=== PATIENT | female | born 1940 | race Caucasian/White ===

== ENCOUNTER 2016-06-14 12:23 | Inpatient (IN) | payer OTHER, MEDICARE ==
--- NOTE | 2016-06-14 13:15 | PDOC ---
History of Present Illness <Carey Rodríguez - Last Filed: 06/14/16 15:28> - General History Source: Patient Exam Limitations: No Limitations - History of Present Illness Initial Comments: 06/14/16 13:19 76y F hx of chf s/p pm/defibrillator, htn, hl, presents sent to the ED for evaluation of worsening LE edema - pt with recent admission but left AMA, she went to the PMDs office today and pt has been off her meds, after discussion with cardiology, pt was sent to the ED for admission. pt states feeling alittle be weaker than usual, +leg swelling b/l, pt denies any cp, sob, fever/chills, cough, diarrhea/dysuria. per dr. duggan, pt has hx of right sided heart failure with significantly elevated LFTs during her hospitalization <Steven Crowder - Last Filed: 06/14/16 15:38> - General Chief Complaint: Edema Stated Complaint: (PCP SENT) Time Seen by Provider: 06/14/16 13:02 Past History <MarcosCarey - Last Filed: 06/14/16 15:28> - Past Medical History Anemia: Yes Asthma: No Cancer: Yes (breast,endometrial) Cardiac Disorders: Yes CVA: No COPD: No CHF: Yes Dementia: No Diabetes: No GI Disorders: No Disorders: No HTN: Yes Hypercholesterolemia: Yes Liver Disease: No Seizures: No Thyroid Disease: No - Surgical History Abdominal Surgery: Yes (hysterectomy) Appendectomy: Yes Cardiac Surgery: Yes (pacemaker,defibrillator) Cholecystectomy: Yes Lung Surgery: No Neurologic Surgery: No Orthopedic Surgery: Yes (bilateral knee replaced) - Reproductive History Endometrial CA: Yes - Immunization History Td Vaccination: (UNKNOWN) Immunization Up to Date: No - Psycho/Social/Smoking Cessation Hx Anxiety: No Suicidal Ideation: No Smoking Status: Yes Smoking History: Never smoked Have you smoked in the past 12 months: No Number of Cigarettes Smoked Daily: 0 If you are a former smoker, when did you quit?: 30 yrs Information on smoking cessation initiated: No Hx Alcohol Use: No Drug/Substance Use Hx: No Substance Use Type: None Hx Substance Use Treatment: No <Steven Crowder - Last Filed: 06/14/16 15:38> - Past Medical History Allergies/Adverse Reactions: Allergies Allergy/AdvReac Type Severity Reaction Status Date / Time Penicillins Allergy Swelling Verified 06/14/16 12:38 Sulfa (Sulfonamide Allergy Swelling Verified 06/14/16 12:38 Antibiotics) [Sulfa(Sulfonamide Antibiotics)] methylprednisolone AdvReac Severe CHF Verified 06/14/16 12:38 [From Medrol] codeine AdvReac Verified 06/14/16 12:38 morphine AdvReac Verified 06/14/16 12:38 doxycycline AdvReac dizzy and Uncoded 06/14/16 12:38 fainted Home Medications: Ambulatory Orders Cholecalciferol (Vitamin D3) [Vitamin D3] 1,000 unit PO 2 TABS DAILY tablet Docusate Sodium [Stool Softener] 100 mg PO DAILY PRN tablet 07/14/13 Multivit-Min/Iron/Folic/Lutein [Centrum Silver Women Tablet] 1 each PO DAILY 09/13 Carvedilol [Coreg -] 12.5 mg PO BID #60 tablet 02/06/16 Aspirin [Aspirin EC] 81 mg PO DAILY 05/31/16 Krill/[place]-3/Dha/Epa/Lipids [[place]-3 Krill Oil 500 mg Sfgl] 1 each PO DAILY 06/14 Ubidecarenone [Coq-10] 100 mg PO DAILY 05/31/16 Zolpidem Tartrate [Ambien] 10 mg PO HS PRN 06/01/16 Magnesium Oxide [Mag-Ox -] 400 mg PO DAILY #30 tablet 06/10/16 Potassium Chloride [K-Dur -] 40 meq PO DAILY #30 tablet.er 06/10/16 Torsemide [Demadex -] 50 mg PO DAILY #30 tablet 06/10/16 Midodrine HCl 5 mg PO TID tablet 06/14/16 Potassium Chloride 20 meq PO BID 06/14/16 Torsemide [Demadex -] 100 mg PO 1/2 tab daily tablet 06/14/16 Review of Systems - Review of Systems Able to Perform ROS?: Yes Comments:: 06/14/16 13:39 Constitutional - no reported Fever, Chills, weakness, HEENT: no reported vision changes, sore throat Respiratory: no reported cough, sob, hemoptysis Cardiac: no reported chest pain, palpitations, light headedness, leg swelling Abd/GI: no reported abd pain, nausea, vomiting, blood per rectum, melena, diarrhea : no reported dysuria, frequency, discharge Musculskelatal - +leg swelling no reported back pain, joint swelling skin - no reported bruising, erythema, rash neurological: no reported headache, numbness, focal weakness, tingling, ataxia, weakness hematologic: no reported anemia, easy bruising, easy bleeding <Lakesha,Steven - Last Filed: 06/14/16 15:38> *Physical Exam - Vital Signs Last Vital Signs Temp Pulse Resp BP Pulse Ox 98.3 F 77 18 128/63 98 06/14/16 12:34 06/14/16 12:34 06/14/16 12:34 06/14/16 12:34 06/14/16 13:12 <Carey Rodríguez - Last Filed: 06/14/16 15:28> - Vital Signs Last Vital Signs Temp Pulse Resp BP Pulse Ox 98.3 F 77 18 128/63 98 06/14/16 12:34 06/14/16 12:34 06/14/16 12:34 06/14/16 12:34 06/14/16 13:12 - Physical Exam Comments: 06/14/16 13:40 GENERAL: The patient is awake, alert, and fully oriented, Nontoxic - in no acute distress. HEAD: Normocephalic, atraumatic. EYES: extraocular movements intact, sclera anicteric, conjunctiva clear. ENT: Normal voice, Moist mucous membranes. NECK: Normal range of motion, supple LUNGS: Breath sounds equal, clear to auscultation bilaterally. No wheezes, no rhonchi, no rales. HEART: iurregular, no m/r/g ABDOMEN: Soft, nontender, normoactive bowel sounds. No guarding, no rebound. . No CVA tenderness EXTREMITIES: +pitting edema up to knees, Normal range of motion, No clubbing or cyanosis. No cords, erythema, or tenderness. NEUROLOGICAL: No facial assymetry, Normal speech, PSYCH: Normal mood, normal affect. SKIN: Warm, Dry, normal turgor, <Lakesha,Steven - Last Filed: 06/14/16 15:38> Heart Score/ECG Review - ECG Impressions Comment:: 06/14/16 13:40 Twelve-lead EKG was performed and reviewed by me. There is normal sinus rhythm with a normal rate. Rate of 74, multiple PVCs Left axis deviation <Steven Crowder - Last Filed: 06/14/16 15:38> ED Treatment Course - LABORATORY CBC & Chemistry Diagram: 06/14/16 13:20 06/14/16 13:20 - ADDITIONAL ORDERS Additional order review: Laboratory Results 06/14/16 06/14/16 13:20 12:50 Sodium 136 Potassium 3.8 Chloride 94 L Carbon Dioxide 30 Anion Gap 12 BUN 46 H Creatinine 1.5 H Creat Clearance w eGFR 33.58 Random Glucose 88 D Calcium 8.7 Total Bilirubin 0.6 D AST 99 H D ALT 371 H D Alkaline Phosphatase 265 H B-Natriuretic Peptide 41054.20 H Total Protein 5.7 L Albumin 3.1 L Urine Color Yellow Urine Appearance Cloudy Urine pH 6.0 Ur Specific [place] 1.012 Urine Protein Negative Urine Glucose (UA) Negative Urine Ketones Negative Urine Blood Negative Urine Nitrite Negative Urine Bilirubin Negative Urine Urobilinogen Negative Ur Leukocyte Esterase 3+ H Urine RBC 5 Urine WBC 1177 Ur Epithelial Cells Rare Urine Bacteria Rare 06/14/16 13:20 RBC 3.60 MCV 89.0 MCHC 32.1 RDW 15.7 H MPV 8.8 Neutrophils % 81.7 Lymphocytes % 5.9 L D Monocytes % 10.0 Eosinophils % 1.5 Basophils % 0.9 <Carey Rodríguez - Last Filed: 06/14/16 15:28> - LABORATORY CBC & Chemistry Diagram: 06/14/16 13:20 06/14/16 13:20 <Steven Crowder - Last Filed: 06/14/16 15:38> Medical Decision Making - Medical Decision Making 06/14/16 15:28 Dr. Cates was paged via paging service at 3:10pm. Dr. Thompson is covering. Awaiting a call back. <Carey Rodríguez - Last Filed: 06/14/16 15:28> - Medical Decision Making 06/14/16 13:41 76y F hx of Chf sent back to the ER for admission for further tune up of her CHF , pt taking some of her meds, but unclwear which as some of her meds were misplaced. will ck labs dr. duggan requested admissoin will d/w dr. cates 06/14/16 15:03 persisetntly elevated LFTs will admit for further management of chf and will notify dr. cates. 06/14/16 15:19 awaiting call bcak from dr. whitmore and hospitalist service stable for med surg 06/14/16 15:[address] Feng agree with admission to med/surg for furthe rmanagment Case discussed in detail with admitting physician including history, physical exam and ancillary studies. Admitting physician has assumed care for the patient, will follow all pending diagnostics and will complete the evaluation and treatment. <Steven Crowder - Last Filed: 06/14/16 15:38> *DC/Admit/Observation/Transfer <Carey Rodríguez - Last Filed: 06/14/16 15:28> - Discharge Dispostion Admit: Yes <Steven Crowder - Last Filed: 06/14/16 15:38> Diagnosis at time of Disposition: CHF (congestive heart failure) Qualifiers: Congestive heart failure type: combined Congestive heart failure chronicity: unspecified congestive heart failure chronicity Qualified Code(s): I50.40 - Unspecified combined systolic (congestive) and diastolic (congestive) heart failure - Discharge Dispostion Condition at time of disposition: Stable - Referrals Referrals: Tyler Cates MD [Primary Care Provider] -
[2016-06-14 13:47] LABS: BASOPHIL 0.9 % (0-2.0); EOSINOPHIL 1.5 % (0-4.5); MCH 28.6 pg (25.7-33.7); MCHC 32.1 g/dl (32.0-36.0); MEAN PLT VOLUME 8.8 fl (7.5-11.1); NEUTROPHILS 81.7 % (42.8-82.8); PLATELET COUNT 227 K/MM3 (134-434); RDW 15.7 % (11.6-15.6); WHITE BLOOD COUNT 7.5 K/mm3 (4.0-10.0)
[2016-06-14 14:01] LABS: URINE APPEARANCE CLOUDY; URINE BILIRUBIN NEGATIVE (NEGATIVE); URINE BLOOD NEGATIVE (NEGATIVE); URINE COLOR YELLOW; URINE GLUCOSE (UA) NEGATIVE (NEGATIVE); URINE KETONE NEGATIVE (NEGATIVE); URINE NITRITE NEGATIVE (NEGATIVE); URINE PROTEIN NEGATIVE (NEGATIVE); URINE UROBILINOGEN NEGATIVE E.U./dl (0.2-1.0)
[2016-06-14 14:02] LABS: URINE LEUK ESTERASE 3+ (NEGATIVE)
[2016-06-14 14:07] LABS: URINE BACTERIA RARE /hpf (NONE SEEN); URINE RBC 5 /hpf (0-3); URINE WBC 1177 /hpf (3-5)
[2016-06-14 14:18] LABS: ALBUMIN 3.1 g/dl (3.4-5.0); BILIRUBIN,TOTAL 0.6 mg/dL (0.2-1.0); CALCIUM 8.7 mg/dL (8.5-10.1); CREATININE 1.5 mg/dL (0.55-1.02); TOT PROT 5.7 g/dl (6.4-8.2)
[2016-06-14] MEDS ORDERED: DOCUSATE SODIUM 100 MG CAPSULE (FP) PO PRN (17:17)
[2016-06-14] MEDS ORDERED: ZOLPIDEM TARTRATE 5 MG TABLET PO PRN (17:20)
--- NOTE | 2016-06-14 17:27 | HP ---
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 Non compliant with medication regimen at home due to multiple medications. Has not been following her free water restriction. Signed out AMA on last admission. 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% PAST SURGICAL HISTORY: Appendectomy Hysterectomy Mastectomy AICD Social History: Smoking:former 30 p/y Alcohol: quit 1975 Drugs: no Family History: No history of CHF Allergies Penicillins Allergy (Verified 06/14/16 12:38) Swelling Sulfa (Sulfonamide Antibiotics) [Sulfa(Sulfonamide Antibiotics)] Allergy ( Verified 06/14/16 12:38) Swelling methylprednisolone [From Medrol] Adverse Reaction (Severe, Verified 06/14/16 12: 38) CHF codeine Adverse Reaction (Verified 06/14/16 12:38) BECAME BELIGERENT morphine Adverse Reaction (Verified 06/14/16 12:38) BECAME BELIGERENT doxycycline Adverse Reaction (Uncoded 06/14/16 12:38) dizzy and fainted HOME MEDICATIONS: Home Medications Medication Instructions Recorded Cholecalciferol (Vitamin D3) 1,000 unit PO 2 TABS DAILY tablet 07/14/13 [Vitamin D3] Docusate Sodium [Stool Softener] 100 mg PO DAILY PRN tablet 07/14/13 Multivit-Min/Iron/Folic/Lutein 1 each PO DAILY 02/04/16 [Centrum Silver Women Tablet] Carvedilol [Coreg -] 12.5 mg PO BID #60 tablet 02/06/16 Aspirin [Aspirin EC] 81 mg PO DAILY 05/31/16 Krill/[place]-3/Dha/Epa/Lipids 1 each PO DAILY 05/31/16 [[place]-3 Krill Oil 500 mg Sfgl] Ubidecarenone [Coq-10] 100 mg PO DAILY 05/31/16 Zolpidem Tartrate [Ambien] 10 mg PO HS PRN 06/01/16 Magnesium Oxide [Mag-Ox -] 400 mg PO DAILY #30 tablet 06/10/16 Potassium Chloride [K-Dur -] 40 meq PO DAILY #30 tablet.er 06/10/16 Torsemide [Demadex -] 50 mg PO DAILY #30 tablet 06/10/16 Midodrine HCl 5 mg PO TID tablet 06/14/16 Potassium Chloride 20 meq PO BID 06/14/16 Torsemide [Demadex -] 100 mg PO 1/2 tab daily tablet 06/14/16 REVIEW OF SYSTEMS CONSTITUTIONAL: Absent: fever, chills, diaphoresis, generalized weakness, malaise, loss of appetite, weight change HEENT: Absent: rhinorrhea, nasal congestion, throat pain, throat swelling, difficulty swallowing, mouth swelling, ear pain, eye pain, visual changes CARDIOVASCULAR: Absent: chest pain, syncope, palpitations, irregular heart rate, lightheadedness , peripheral edema RESPIRATORY: Absent: cough, shortness of breath, dyspnea with exertion, orthopnea, wheezing, stridor, hemoptysis GASTROINTESTINAL: Absent: abdominal pain, abdominal distension, nausea, vomiting, diarrhea, constipation, melena, hematochezia GENITOURINARY: Absent: dysuria, frequency, urgency, hesitancy, hematuria, flank pain, genital pain MUSCULOSKELETAL: Absent: myalgia, arthralgia, joint swelling, back pain, neck pain SKIN: Absent: rash, itching, pallor HEMATOLOGIC/IMMUNOLOGIC: Absent: easy bleeding, easy bruising, lymphadenopathy, frequent infections ENDOCRINE: Absent: unexplained weight gain, unexplained weight loss, heat intolerance, cold intolerance NEUROLOGIC: Absent: headache, focal weakness or paresthesias, dizziness, unsteady gait, seizure, mental status changes, bladder or bowel incontinence PSYCHIATRIC: Absent: anxiety, depression, suicidal or homicidal ideation, hallucinations. PHYSICAL EXAMINATION GENERAL: Awake, alert, and fully oriented, in no acute distress. HEAD: Normal with no signs of trauma. EYES: Pupils equal, round and reactive to light, extraocular movements intact, sclera anicteric, conjunctiva clear. No lid lag. EARS, NOSE, THROAT: Ears normal, nares patent, oropharynx clear without exudates. Moist mucous membranes. NECK: Normal range of motion, supple without lymphadenopathy, JVD, or masses. LUNGS: Breath sounds equal, clear to auscultation bilaterally. No wheezes, and no crackles. No accessory muscle use. HEART: Regular rate and rhythm, normal S1 and S2 without murmur, rub or gallop. ABDOMEN: Soft, nontender, not distended, normoactive bowel sounds, no guarding, no rebound, no masses. No hepatomegaly or splenomegaly. MUSCULOSKELETAL: Normal range of motion at all joints. No bony deformities or tenderness. No CVA tenderness. UPPER EXTREMITIES: 2+ pulses, warm, well-perfused. No cyanosis. No clubbing. No peripheral edema. LOWER EXTREMITIES: 2+ pulses, warm, well-perfused. No calf tenderness. 1 + edema b/l . NEUROLOGICAL: Cranial nerves II-XII intact. Normal speech. Normal gait. PSYCHIATRIC: Cooperative. Good eye contact. Appropriate mood and affect. SKIN: Warm, dry, normal turgor, no rashes or lesions noted, normal capillary refill. Laboratory 06/14/16 06/14/16 06/14/16 12:50 13:20 13:20 WBC 7.5 K/mm3 K/mm3 (4.0-10.0) RBC 3.60 M/mm3 M/mm3 (3.60-5.2) Hgb 10.3 GM/dL L D GM/dL (10.7-15.3) Hct 32.1 % L % (32.4-45.2) MCV 89.0 fl fl (80-96) MCHC 32.1 g/dl g/dl (32.0-36.0) RDW 15.7 % H % (11.6-15.6) Plt Count 227 K/MM3 D K/MM3 (134-434) MPV 8.8 fl fl (7.5-11.1) Neutrophils % 81.7 % % (42.8-82.8) Lymphocytes % 5.9 % L D % (8-40) Monocytes % 10.0 % % (3.8-10.2) Eosinophils % 1.5 % % (0-4.5) Basophils % 0.9 % % (0-2.0) Sodium 136 mmol/L mmol/L (136-145) Potassium 3.8 mmol/L mmol/L (3.5-5.1) Chloride 94 mmol/L L mmol/L (98-107) Carbon Dioxide 30 mmol/L mmol/L (21-32) Anion Gap 12 (8-16) BUN 46 mg/dL H mg/dL (7-18) Creatinine 1.5 mg/dL H mg/dL (0.55-1.02) Creat Clearance w eGFR 33.58 (>60) Random Glucose 88 mg/dL D mg/dL (74-106) Calcium 8.7 mg/dL mg/dL (8.5-10.1) Total Bilirubin 0.6 mg/dL D mg/dL (0.2-1.0) AST 99 U/L H D U/L (15-37) ALT 371 U/L H D U/L (12-78) Alkaline Phosphatase 265 U/L H U/L (45-117) B-Natriuretic Peptide 83606.20 pg/ml H pg/ml (5-450) Total Protein 5.7 g/dl L g/dl (6.4-8.2) Albumin 3.1 g/dl L g/dl (3.4-5.0) Urine Color Yellow Urine Appearance Cloudy Urine pH 6.0 (5.0-8.0) Ur Specific [place] 1.012 (1.001-1.035) Urine Protein Negative (NEGATIVE) Urine Glucose (UA) Negative (NEGATIVE) Urine Ketones Negative (NEGATIVE) Urine Blood Negative (NEGATIVE) Urine Nitrite Negative (NEGATIVE) Urine Bilirubin Negative (NEGATIVE) Urine Urobilinogen Negative E.U./dl E.U./dl (0.2-1.0) Ur Leukocyte Esterase 3+ H (NEGATIVE) Urine RBC 5 /hpf /hpf (0-3) Urine WBC 1177 /hpf /hpf (3-5) Ur Epithelial Cells Rare /hpf /hpf (FEW) Urine Bacteria Rare /hpf /hpf (NONE SEEN) ASSESSMENT/PLAN: 1. Acute exacerbation of chronic congestive heart failure/ Right heart failure - likely secondary to non compliance - telemetry - strict I&O - IV lasix in monitored setting ( BP is low ) - c/w coreg 2. History of SOUMYA - declined treatment 3. Elevated LFTs - improving compared to last admission , this sicandary to hepatic congestion . 4. DVT PPX - SCD Visit type - Emergency Visit Emergency Visit: Yes ED Registration Date: 06/14/16 Care time: The patient presented to the Emergency Department on the above date and was hospitalized for further evaluation of their emergent condition. - New Patient This patient is new to me today: Yes Date on this admission: 06/14/16 - Critical Care Critical Care patient: No
[2016-06-14] MEDS ORDERED: MIDODRINE HCL 5 MG TABLET PO SCH (18:00)
--- NOTE | 2016-06-14 18:36 | CON.CARD ---
Cardiology Consult (text) - Consultation Consultation Note: CC: chf 76 yo with h/o nonisch CMP, VT--s/p ICD, SOUMYA, breast Ca--mastectomy, s/p Carloz, uterine CA s/p chemo presents with LE edema. Patient left AMA a few days ago. Was hospitalized at that time for acute HF exacerbation with hyponatremia and shock liver. Was diuresed at the time with lasix 80 mg iv bid. Since discharge has been confused about her medication and is not sure what she was supposed to be taking. Subsequently developed worsening abdominal distension and LE edema. Typical dry weight had been 101 lbs. Weight had been increasing as outpatient recently and during last admission remained above prior dry weights. No cp, sob, orthopnea, pnd, palps, dizziness, claudication, bleeding or transient neurologic symptoms. Denies shocks from icd. PMH:per hpi, additionally trigeminal neuralgia Past Surgical History: Yes: AICD (2007), Appendectomy, Hysterectomy (2012), Joint Replacement (bilat knee), Mastectomy (bilat 1999), Permanent Pacemaker, Tonsillectomy Social hx: former smoker, Hx Alcohol Use: (+hx abuse-quit 1975), no illicits. ros: per hpi, additionally no f/c/s, headache, visual disturbances, rashes. + cough, + congestion Ambulatory Orders Cholecalciferol (Vitamin D3) [Vitamin D3] 1,000 unit PO 2 TABS DAILY tablet Docusate Sodium [Stool Softener] 100 mg PO DAILY PRN tablet 07/14/13 Multivit-Min/Iron/Folic/Lutein [Centrum Silver Women Tablet] 1 each PO DAILY 09/13 Carvedilol [Coreg -] 12.5 mg PO BID #60 tablet 02/06/16 Aspirin [Aspirin EC] 81 mg PO DAILY 05/31/16 Krill/[place]-3/Dha/Epa/Lipids [[place]-3 Krill Oil 500 mg Sfgl] 1 each PO DAILY 06/14 Ubidecarenone [Coq-10] 100 mg PO DAILY 05/31/16 Zolpidem Tartrate [Ambien] 10 mg PO HS PRN 06/01/16 Magnesium Oxide [Mag-Ox -] 400 mg PO DAILY #30 tablet 06/10/16 Potassium Chloride [K-Dur -] 40 meq PO DAILY #30 tablet.er 06/10/16 Torsemide [Demadex -] 50 mg PO DAILY #30 tablet 06/10/16 Midodrine HCl 5 mg PO TID tablet 06/14/16 Potassium Chloride 20 meq PO BID 06/14/16 Torsemide [Demadex -] 100 mg PO 1/2 tab daily tablet 06/14/16 Current Medications Aspirin (Ecotrin -) 81 mg PO DAILY NIKOLAS Carvedilol (Coreg -) 12.5 mg PO BID NIKOLAS Docusate Sodium (Colace -) 100 mg PO DAILY PRN PRN Reason: CONSTIPATION Furosemide (Lasix Injection -) 80 mg IVPB BID@0600,1400 NIKOLAS Magnesium Oxide (Mag-Ox -) 400 mg PO DAILY NIKOLAS Midodrine (Proamatine -) 5 mg PO TID-MID NIKOLAS Potassium Chloride (K-Dur -) 40 meq PO DAILY NIKOLAS Zolpidem Tartrate (Ambien -) 5 mg PO HS PRN PRN Reason: INSOMNIA Vital Signs - 24 hr 06/14/16 06/14/16 06/14/16 12:34 13:12 18:08 Temperature 98.3 F 98.7 F Pulse Rate 77 Pulse Rate [ 89 Left Radial] Respiratory 18 20 Rate Blood Pressure 128/63 Blood Pressure 130/70 [Left Arm] O2 Sat by Pulse 97 98 98 Oximetry (%) Intake & Output 06/12/16 06/13/16 06/14/16 06/15/16 07:59 07:59 07:59 07:59 Weight 112 lb NAD, calm JVD elevated, neck supple RRR nl s1, s2, 2/6 murmer at apex ctab, nl effort + bs soft nt + distension, ext with 1+ edema, no cyanosis, clubbing + dp/pt aaox3 no jaundice, diaphoresis. CBC, BMP 06/14/16 13:20 06/14/16 13:20 Laboratory Tests 06/01/16 06/07/16 06/14/16 07:50 07:51 13:20 Magnesium 1.9 Total Bilirubin 1.1 H D 0.6 D AST 1406 H 99 H D ALT 954 H D 371 H D Alkaline Phosphatase 251 H 265 H B-Natriuretic Peptide 95524.86 H 63745.20 H Albumin 3.4 L 3.1 L EKG: NSR with pvc's, LAD, IVCD. Repolarization abnormalities. Anterolateral TWI Echo 05/2016: Mod LV dilation, severely impaired lv fn (global), EF 20% - biplane EF 24%. nl rv. E A reversal. severe LAE. mild-mod mr/tr. rvsp at least 38 mmHg. IVC with respirophasic variation. Echo 01/2016 [facility]: Mod LV dil. EF 25-30%, NL RV. mild-mod MR. Mod TR. mild phtn. Echo 12/14 ([facility]): mod LVE; severe decr EF global; dd1; nl RV; normal PV syst flow; mild L/JAQUELINE; mild-mod MR/TR; mild pHTN (48); small peric eff LHC 2001 ([facility]): normal cor.s; mild, diffuse LV hypo (EF 54%); mild-mod LVH; (done for evaluation of cardimyopathy or pericardial dz) MIBI 2010 (per): dil LV with mod global HK (40%); fixed infer/inferoapical defect; no isch Carotids 07/13: minimal plq, no stenosis Sleep study 07/13: short sleep duration (55min); mod-sev SOUMYA with mild desat.s. 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 NICM, - acute exacerbation in setting of leaving AMA last week and subsequent non- adherence to medications - Concern for superimposed RV failure on last admit. - Hepatic congestion continues to improve (from LFT's on last admit). - previous dry weight 101-103. - Will resume prior inpatient lasix regimen 80 mg IV BID. daily cmp, standing weights, I/O's, electrolyte repletion - low bp (intolerant of even low dose lisin 2.5mg with presyncope/syncope) will not tolerate Entresto. con't coreg. VT s/p ICD - Recent office check normal. Con't routine outpatient monitoring. SOUMYA - patient declines treatment
[2016-06-14] MEDS: FUROSEMIDE 40 MG/4 ML INJECTABLE VIAL IVPB SCH (18:49)
[2016-06-14 19:46] VITALS: BMI 24.3
--- NOTE | 2016-06-14 20:55 | HOSP ---
Subjective - Review of Symptoms Subjective: Was paged by the nurse to inform that patient needs to be transferred to the Telemetry. As per the patient, there is no complaints at this time. Nurse mentioned that Dr. Thompson called and asked to transfer the patient to Tele for continuous cardiac monitoring. Denies chest pain, sob, cough, palpitation, abdominal pain, nausea or vomiting. Physical Exam Vitals: BP-124/55 Hg; P-88; T-98.1; Spo2-98 % RA General: Elderly female, lying comfortably in bed, awake, alert, in no acute distress. HEENT: EOM intact, no pallor or icterus. Chest: B/L lungs clear, no added sounds CVS: Regular, S1, S2, loud systolic murmur. Extremities: B/L pitting edema up to mid ponce A/P Patient is a 76 year old female with significant past medical history of nonisch CMP, VT--s/p ICD, SOUMYA, breast Ca--mastectomy, s/p Carloz, uterine CA s/p chemo admitted for Acute exacerbation of CHF. Transfer to Tele as per Dr. Thompson. Plan of care explained to the patient. She verbalized understanding. Case discussed with Dr. Gray. Physical Examination Vital Signs: Vital Signs Temperature 98.1 F 06/14/16 19:36 Pulse Rate 88 06/14/16 19:36 Respiratory Rate 20 06/14/16 19:36 Blood Pressure 124/85 06/14/16 19:36 O2 Sat by Pulse Oximetry (%) 100 06/14/16 19:36 Visit type - Emergency Visit Emergency Visit: Yes ED Registration Date: 06/14/16 Care time: The patient presented to the Emergency Department on the above date and was hospitalized for further evaluation of their emergent condition. - New Patient This patient is new to me today: Yes Date on this admission: 06/14/16 - Critical Care Critical Care patient: No
[2016-06-14] MEDS ORDERED: CARVEDILOL 12.5 MG TABLET (FP) PO SCH (22:00)
[2016-06-15] MEDS ORDERED: FUROSEMIDE 100 MG/10 ML INJECTABLE VIAL IVPB SCH (06:00)
[2016-06-15] MEDS: FUROSEMIDE 40 MG/4 ML INJECTABLE VIAL IVPB SCH ×2 (07:02→14:11)
[2016-06-15 07:30] LABS: ALBUMIN 2.7 g/dl (3.4-5.0); BILIRUBIN,TOTAL 0.6 mg/dL (0.2-1.0); CALCIUM 7.9 mg/dL (8.5-10.1); CREATININE 1.2 mg/dL (0.55-1.02); TOT PROT 4.9 g/dl (6.4-8.2)
[2016-06-15] MEDS ORDERED: ZOLPIDEM TARTRATE 5 MG TABLET PO PRN (07:36)
[2016-06-15] MEDS ORDERED: DOCUSATE SODIUM 100 MG CAPSULE (FP) PO PRN (07:36)
[2016-06-15] MEDS ORDERED: PT OWN MED DRAWER 7, Y5N ONE (09:00)
[2016-06-15] MEDS: MAGNESIUM OXIDE 400 MG TABLET (FP) PO SCH (09:05)
[2016-06-15] MEDS: MIDODRINE HCL 5 MG TABLET PO SCH ×3 (09:05→18:37)
[2016-06-15] MEDS: ASPIRIN COATED 81 MG TABLET.EC PO SCH (09:06)
[2016-06-15] MEDS: CARVEDILOL 12.5 MG TABLET (FP) PO SCH ×2 (09:06→21:05)
[2016-06-15] MEDS: POTASSIUM CHLORIDE TABS 20 MEQ TABLET.ER (FP) PO SCH (09:06)
[2016-06-15] MEDS ORDERED: POTASSIUM CHLORIDE TABS 20 MEQ TABLET.ER (FP) PO SCH (10:00)
[2016-06-15] MEDS ORDERED: ASPIRIN COATED 81 MG TABLET.EC PO SCH (10:00)
[2016-06-15] MEDS ORDERED: MAGNESIUM OXIDE 400 MG TABLET (FP) PO SCH (10:00)
--- NOTE | 2016-06-15 11:36 | PN ---
Progress Note, Physician History of Present Illness: Didnt sleep well Wants AMbien 10mg No dyspnea Urinating well I/O NR but weight down to 109 from 112 Tet NSR in 80s - Current Medication List Current Medications: Active Medications Aspirin (Ecotrin -) 81 mg PO DAILY [facility] Last Admin: 06/15/16 09:06 Dose: 81 mg Carvedilol (Coreg -) 12.5 mg PO BID [facility] Last Admin: 06/15/16 09:06 Dose: 12.5 mg Docusate Sodium (Colace -) 100 mg PO DAILY PRN PRN Reason: CONSTIPATION Furosemide (Lasix Injection -) 80 mg IVPB BID@0600,1400 [facility] Magnesium Oxide (Mag-Ox -) 400 mg PO DAILY [facility] Last Admin: 06/15/16 09:05 Dose: 400 mg Midodrine (Proamatine -) 5 mg PO TID-MID [facility] Last Admin: 06/15/16 09:05 Dose: 5 mg Potassium Chloride (K-Dur -) 40 meq PO DAILY [facility] Last Admin: 06/15/16 09:06 Dose: 40 meq Zolpidem Tartrate (Ambien -) 5 mg PO HS PRN PRN Reason: INSOMNIA - Objective Vital Signs: Vital Signs Temperature 98.3 F 06/15/16 09:00 Pulse Rate 75 06/15/16 09:00 Respiratory Rate 20 06/15/16 09:00 Blood Pressure 124/68 06/15/16 09:00 O2 Sat by Pulse Oximetry (%) 93 L 06/15/16 09:00 Constitutional: Yes: Well Nourished, No Distress, Other (Lying supine in bed) Eyes: Yes: WNL HENT: Yes: WNL Neck: Yes: WNL Cardiovascular: Yes: Regular Rate and Rhythm Respiratory: Yes: WNL Gastrointestinal: Yes: WNL Extremities: Yes: WNL Edema: No Labs: CBC, BMP 06/15/16 05:20 Assessment/Plan 76 yo with h/o nonisch CMP, VT--s/p ICD, SOUMYA, breast Ca--mastectomy, s/p Carloz, uterine CA s/p chemo presents with hyponatremia. NICM, - acute exacerbation in setting of leaving AMA last week and subsequent non- adherence to medications - Concern for superimposed RV failure on last admit. - Hepatic congestion continues to improve (from LFT's on last admit). - previous dry weight 101-103 now going down to 109 today from 112. - Continue lasix regimen 80 mg IV BID. daily cmp, standing weights, I/O's, - Needs K electrolyte repletion, confirmed with RN given 40mEq this AM, will recheck K this afternoon - low bp (intolerant of even low dose lisin 2.5mg with presyncope/syncope) will not tolerate Entresto. con't coreg. VT s/p ICD - Recent office check normal. Con't routine outpatient monitoring. SOUMYA - patient declines treatment
--- NOTE | 2016-06-15 14:44 | PN ---
Physical Exam: SUBJECTIVE: Patient seen and examined reports improvement in leg edema and SOB no chest pain OBJECTIVE: Vital Signs Period Temp Pulse Resp BP Sys/Drake Pulse Ox Last 24 Hr 97.7 F-98.7 F 74-89 20-20 120-132/62-85 93-100 GENERAL: The patient is awake, alert, and fully oriented, in no acute distress. HEAD: Normal with no signs of trauma. EYES: PERRL, extraocular movements intact, sclera anicteric, conjunctiva clear. No ptosis. ENT: Ears normal, nares patent, oropharynx clear without exudates, moist mucous membranes. NECK: Trachea midline, full range of motion, supple. LUNGS: Breath sounds equal, clear to auscultation bilaterally, no wheezes, no crackles, no accessory muscle use. HEART: Regular rate and rhythm, S1, S2 without murmur, rub or gallop. ABDOMEN: Soft, nontender, nondistended, normoactive bowel sounds, no guarding, no rebound, no hepatosplenomegaly, no masses. EXTREMITIES: 2+ pulses, warm, well-perfused, trace edema NEUROLOGICAL: Cranial nerves II through XII grossly intact. Normal speech, gait not observed. PSYCH: Normal mood, normal affect. SKIN: Warm, dry, normal turgor, no rashes or lesions noted Laboratory Results - last 24 hr 06/15/16 05:20 Sodium 140 Potassium 2.9 L* D Chloride 97 L Carbon Dioxide 31 Anion Gap 12 BUN 38 H Creatinine 1.2 H Creat Clearance w eGFR 43.45 Random Glucose 96 Calcium 7.9 L Total Bilirubin 0.6 AST 69 H D ALT 274 H D Alkaline Phosphatase 208 H D Total Protein 4.9 L Albumin 2.7 L Active Medications Generic Name Dose Route Start Last Admin Trade Name Freq PRN Reason Stop Dose Admin Aspirin 81 mg 06/15/16 10:00 06/15/16 09:06 Ecotrin - PO 81 mg DAILY [facility] Administration Carvedilol 12.5 mg 06/15/16 10:00 06/15/16 09:06 Coreg - PO 12.5 mg BID N[facility]AS Administration Docusate Sodium 100 mg 06/15/16 07:36 Colace - PO DAILY PRN CONSTIPATION Furosemide 80 mg 06/15/16 14:00 06/15/16 14:11 Lasix Injection - IVPB 80 mg BID@0600,1400 N[facility] Administration Magnesium Oxide 400 mg 06/15/16 10:00 06/15/16 09:05 Mag-Ox - PO 400 mg DAILY N[facility] Administration Midodrine 5 mg 06/15/16 10:00 06/15/16 14:12 Proamatine - PO 5 mg TID-MID N[facility]AS Administration Potassium Chloride 40 meq 06/15/16 10:00 06/15/16 09:06 K-Dur - PO 40 meq DAILY N[facility]AS Administration Potassium Chloride 20 meq 06/15/16 15:00 Potassium Chloride 20 Meq Premix Ivpb - IVPB 06/15/16 15:01 ONCE ONE Zolpidem Tartrate 5 mg 06/15/16 07:36 Ambien - PO HS PRN INSOMNIA ASSESSMENT/PLAN: 1. Acute exacerbation of chronic congestive heart failure/ Right heart failure - likely secondary to non compliance. Improving . Lost 3lb /24hr - telemetry - strict I&O - IV lasix 80 mg BID - c/w coreg 2. History of SOUMYA - declined treatment 3. Elevated LFTs - improving compared to last admission , this sicandary to hepatic congestion . 4. DVT PPX - SCD 5. Acute hypokalemia - secondary to diuresis - supplement and repeat potassium Visit type - Emergency Visit Emergency Visit: Yes ED Registration Date: 06/14/16 Care time: The patient presented to the Emergency Department on the above date and was hospitalized for further evaluation of their emergent condition. - New Patient This patient is new to me today: Yes Date on this admission: 06/15/16 - Critical Care Critical Care patient: No - Discharge Referral Referred to [facility] Med P.C[facility] No
[2016-06-15] MEDS ORDERED: POTASSIUM CHLORIDE 20 MEQ PREMIX IVPB 100 ML IVPB ONE (15:00)
[2016-06-16] MEDS: FUROSEMIDE 40 MG/4 ML INJECTABLE VIAL IVPB SCH ×2 (06:03→13:20)
[2016-06-16 08:33] LABS: CREATININE 0.9 mg/dL (0.55-1.02)
[2016-06-16] MEDS ORDERED: PT OWN MED DRAWER 7, Y5N ONE (08:58)
[2016-06-16] MEDS: ASPIRIN COATED 81 MG TABLET.EC PO SCH (09:21)
[2016-06-16] MEDS: KCL 10 MEQ IVPB 100 ML IVPB SCH ×3 (09:21→13:20)
[2016-06-16] MEDS: MAGNESIUM OXIDE 400 MG TABLET (FP) PO SCH (09:22)
[2016-06-16] MEDS: CARVEDILOL 12.5 MG TABLET (FP) PO SCH ×2 (09:22→21:37)
[2016-06-16] MEDS: MIDODRINE HCL 5 MG TABLET PO SCH ×3 (09:22→17:31)
[2016-06-16] MEDS: POTASSIUM CHLORIDE TABS 20 MEQ TABLET.ER (FP) PO SCH (09:22)
--- NOTE | 2016-06-16 11:16 | EKG ---
Test Reason : Blood Pressure : / mmHG Vent. Rate : 074 BPM Atrial Rate : 074 BPM P-R Int : 154 ms QRS Dur : 138 ms QT Int : 410 ms P-R-T Axes : 041 -42 114 degrees QTc Int : 455 ms SINUS RHYTHM WITH PREMATURE SUPRAVENTRICULAR COMPLEXES POSSIBLE LEFT ATRIAL ENLARGEMENT LEFT AXIS DEVIATION NON-SPECIFIC INTRA-VENTRICULAR CONDUCTION BLOCK T WAVE ABNORMALITY, CONSIDER LATERAL ISCHEMIA ABNORMAL ECG WHEN COMPARED WITH ECG OF 03-JUN-2016 11:08, PREMATURE VENTRICULAR COMPLEXES ARE NO LONGER PRESENT PREMATURE SUPRAVENTRICULAR COMPLEXES ARE NOW PRESENT Confirmed by ROSELINE RAMIREZ MD ([id number]) on 06/16/2016 11:16:26 AM Referred By: Confirmed By:ROSELINE RAMIREZ MD
--- NOTE | 2016-06-16 12:07 | PN ---
Progress Note, Physician History of Present Illness: No complaints Breathing unchanged Urinating well, 1600 UOP Weight continues to decrease to 108 - Current Medication List Current Medications: Active Medications Aspirin (Ecotrin -) 81 mg PO DAILY [facility] Last Admin: 06/16/16 09:21 Dose: 81 mg Carvedilol (Coreg -) 12.5 mg PO BID [facility] Last Admin: 06/16/16 09:22 Dose: 12.5 mg Docusate Sodium (Colace -) 100 mg PO DAILY PRN PRN Reason: CONSTIPATION Furosemide (Lasix Injection -) 80 mg IVPB BID@0600,1400 [facility] Last Admin: 06/16/16 06:03 Dose: 80 mg Potassium Chloride (Potassium Chloride 10 Meq Premix Ivpb -) 100 mls @ 100 mls/ hr IVPB Q60M [facility] Stop: 06/16/16 12:14 Last Admin: 06/16/16 11:44 Dose: 100 mls/hr Magnesium Oxide (Mag-Ox -) 400 mg PO DAILY [facility] Last Admin: 06/16/16 09:22 Dose: 400 mg Midodrine (Proamatine -) 5 mg PO TID-MID [facility] Last Admin: 06/16/16 09:22 Dose: 5 mg Potassium Chloride (K-Dur -) 40 meq PO DAILY [facility] Last Admin: 06/16/16 09:22 Dose: 40 meq Zolpidem Tartrate (Ambien -) 5 mg PO HS PRN PRN Reason: INSOMNIA Last Admin: 06/15/16 22:48 Dose: 5 mg - Objective Vital Signs: Vital Signs Temperature 98.1 F 06/16/16 09:00 Pulse Rate 68 06/16/16 09:00 Respiratory Rate 18 06/16/16 09:00 Blood Pressure 108/41 06/16/16 09:00 O2 Sat by Pulse Oximetry (%) 97 06/16/16 09:00 Constitutional: Yes: Well Nourished, No Distress Eyes: Yes: WNL HENT: Yes: WNL Neck: Yes: WNL, Rigid Cardiovascular: Yes: WNL, Regular Rate and Rhythm Respiratory: Yes: WNL, Regular Extremities: Yes: WNL Edema: Yes Labs: CBC, BMP 06/16/16 06:00 Assessment/Plan 76 yo with h/o nonisch CMP, VT--s/p ICD, SOUMYA, breast Ca--mastectomy, s/p Carloz, uterine CA s/p chemo presents with hyponatremia. NICM, - acute exacerbation in setting of leaving AMA last week and subsequent non- adherence to medications - Concern for superimposed RV failure on last admit. - Hepatic congestion continues to improve (from LFT's on last admit). - previous dry weight 101-103 now going down to 108 today from 109. - Continue lasix regimen 80 mg IV BID. daily cmp, standing weights, I/O's, - Needs continual K electrolyte repletion, with daily check of K in afternoon. -If continually hypokalemic in the physician chief of pathology, then would given K replacement in evening as well (BID). - low bp (intolerant of even low dose lisin 2.5mg with presyncope/syncope) will not tolerate Entresto. con't coreg. [place] s/p ICD - Recent office check normal. Con't routine outpatient monitoring. SOUMYA - patient declines treatment
[2016-06-16] MEDS ORDERED: ACETAMINOPHEN 325 MG TABLET (FP) PO ONE (14:45)
[2016-06-16 15:07] LABS: MAGNESIUM 1.6 mg/dL (1.8-2.4)
[2016-06-16] MEDS ORDERED: MAGNESIUM SULF 50% (8.12 MEQ/2 ML-1 GM VIAL) IVPB ONE ×2 (19:00→22:00)
--- NOTE | 2016-06-16 19:14 | PN ---
Physical Exam: SUBJECTIVE: Patient seen and examined. She was walking around her room, in no acute distress. Tolerating room air. Asking for Ambien 10mg tonight which is her home dose. OBJECTIVE: Will order Ambien 10mg x 1 tonight and if does well, can continue nightly As per cardiology note: will need daily checks of K in the afternoon (ordered). If her K continues to be low in the a.m. (which it has been), will give K replacements in evening Will order potassium checks at 0600 and 1400 and monitor. Will check potassium tonight at 9pm Magnesium 1.6 today - 2 grams of IV magnesium ordered Vital Signs Period Temp Pulse Resp BP Sys/Drake Pulse Ox Last 24 Hr 98.1 F-9805 F 68-87 18-20 106-127/41-62 97-97 GENERAL: The patient is awake, alert, and fully oriented, in no acute distress. ambulating in room HEAD: Normal with no signs of trauma. EYES: PERRL, extraocular movements intact, sclera anicteric, conjunctiva clear. No ptosis. ENT: moist mucous membranes. NECK: Trachea midline, full range of motion, supple. LUNGS: No wheezing, lungs are clear/diminished to auscultation, tolerating room air HEART: Irregular heart rate ABDOMEN: Soft, nontender, nondistended, normoactive bowel sounds, no guarding, no rebound, no hepatosplenomegaly, no masses. EXTREMITIES: +2 pitting edema from ponce down to feet, advised pt to elevated on 2 pills at night NEUROLOGICAL: Normal speech, steady gait observed. PSYCH: Normal mood, normal affect. SKIN: Warm, dry, normal turgor, no rashes or lesions noted Laboratory Results - last 24 hr 06/16/16 06/16/16 06/16/16 06:00 14:30 14:30 Sodium 138 Potassium 2.9 L* Cancelled Chloride 95 L Carbon Dioxide 34 H Anion Gap 9 BUN 22 H D Creatinine 0.9 D Random Glucose 108 H Calcium 8.0 L Magnesium 1.6 L D 1.6 L Active Medications Generic Name Dose Route Start Last Admin Trade Name Freq PRN Reason Stop Dose Admin Aspirin 81 mg 06/15/16 10:00 06/16/16 09:21 Ecotrin - PO 81 mg DAILY [facility] Administration Carvedilol 12.5 mg 06/15/16 10:00 06/16/16 09:22 Coreg - PO 12.5 mg BID N[facility]AS Administration Docusate Sodium 100 mg 06/15/16 07:36 Colace - PO DAILY PRN CONSTIPATION Furosemide 80 mg 06/15/16 14:00 06/16/16 13:20 Lasix Injection - IVPB 80 mg BID@0600,1400 [facility] Administration Magnesium Oxide 400 mg 06/15/16 10:00 06/16/16 09:22 Mag-Ox - PO 400 mg DAILY [facility] Administration Midodrine 5 mg 06/15/16 10:00 06/16/16 17:31 Proamatine - PO 5 mg TID-MID [facility] Administration Potassium Chloride 40 meq 06/15/16 10:00 06/16/16 09:22 K-Dur - PO 40 meq DAILY N[facility]AS Administration Zolpidem Tartrate 5 mg 06/15/16 07:36 06/15/16 22:48 Ambien - PO 5 mg HS PRN Administration INSOMNIA ASSESSMENT/PLAN: Patient is a 76 year old female with significant past medical history of CHF, s /p pacemaker/defib, hypertension, breast cancer with mastectomy, uterine cancer s/p chemo and hyponatremia. She presented to the ER for evaluation of worsening bilateral lower extremity edema. As per medical records, pt had a recent admission but left AMA. On today's assessment, pt was walking around the room, talking with her roommate and in no acute respiratory distress. Her gait was steady. She states that she feels slightly weaker than usual and is concerned over her persistent lower extremity edema. She denies any chest pain, shortness of breath or any other discomfort. Cardiology: CHF - acute on chronic CHF (right sided heart failure) Assessment/Plan: Can be due to non compliance of home meds On telemonitoring Strict intake and output On Lasix 80mg IV BID Monitor daily weights: (weight on 06/14 50.8kg, weight on 06/16 49.2kg) On ASA 81mg daily Potassium checks BID 0600 and at 1400 (series ordered) Hypertension - chronic Assessment/Plan: Likely secondary to hepatic congestion BP controlled on current regimen of Coreq 12.5mg BID GI: Elevated LFTs - improving Assessment/Plan: AST 99>69, ALT 371>274 Monitor trend F.E.N. Fluids: sodium restricted diet, no IVF/on Lasix Electrolytes: hypokalemia 2.9 > given 3 K riders, will order repeat K @ 9pm and monitor - may need BID supplementation On daily potassium 40meq hypomagnesium 1.6 > 2 gram mag x 1 iv ordered Hyponatremeia > resolved Nutrition: sodium restriction Prophylaxis: GI: Colace daily DVT: ambulatory, SCDs in bed Disposition: Continues to require inpatient hospitalization. Full Code. Visit type - Emergency Visit Emergency Visit: Yes ED Registration Date: 06/14/16 Care time: The patient presented to the Emergency Department on the above date and was hospitalized for further evaluation of their emergent condition. - New Patient This patient is new to me today: Yes Date on this admission: 06/16/16 - Critical Care Critical Care patient: No - Discharge Referral Referred to [facility] Med P.C.: No
[2016-06-16] MEDS ORDERED: ZOLPIDEM TARTRATE 5 MG TABLET PO ONE (20:00)
[2016-06-17] MEDS: FUROSEMIDE 40 MG/4 ML INJECTABLE VIAL IVPB SCH ×4 (06:25→21:35)
[2016-06-17 07:39] LABS: BASOPHIL 0.4 % (0-2.0); EOSINOPHIL 1.1 % (0-4.5); MCH 28.6 pg (25.7-33.7); MCHC 32.3 g/dl (32.0-36.0); MEAN CELL VOLUME 88.4 fl (80-96); MEAN PLT VOLUME 8.6 fl (7.5-11.1); NEUTROPHILS 74.5 % (42.8-82.8); PLATELET COUNT 192 K/MM3 (134-434); RDW 15.7 % (11.6-15.6); WHITE BLOOD COUNT 6.8 K/mm3 (4.0-10.0)
[2016-06-17 08:31] LABS: ALBUMIN 2.8 g/dl (3.4-5.0); ANION GAP 11 (8-16); CALCIUM 7.8 mg/dL (8.5-10.1); CO2 32 mmol/L (21-32); CREATININE 0.9 mg/dL (0.55-1.02); GLUCOSE,RANDOM 117 mg/dL (74-106); MAGNESIUM 2.4 mg/dL (1.8-2.4); SGOT/AST 40 U/L (15-37); SGPT/ALT 187 U/L (12-78)
[2016-06-17 08:34] LABS: ALK PHOS 168 U/L (45-117); BILIRUBIN,TOTAL 0.8 mg/dL (0.2-1.0); TOT PROT 5.2 g/dl (6.4-8.2)
--- NOTE | 2016-06-17 09:14 | PN ---
Progress Note, Physician Chief Complaint: chf History of Present Illness: denies sob (oob) leg swelling much resolved no cp, palpit no cigs - Current Medication List Current Medications: Active Medications Aspirin (Ecotrin -) 81 mg PO DAILY [facility] Last Admin: 06/16/16 09:21 Dose: 81 mg Carvedilol (Coreg -) 12.5 mg PO BID [facility] Last Admin: 06/16/16 21:37 Dose: 12.5 mg Docusate Sodium (Colace -) 100 mg PO DAILY PRN PRN Reason: CONSTIPATION Furosemide (Lasix Injection -) 80 mg IVPB BID@0600,1400 [facility] Last Admin: 06/17/16 06:25 Dose: 80 mg Magnesium Oxide (Mag-Ox -) 400 mg PO DAILY [facility] Last Admin: 06/16/16 09:22 Dose: 400 mg Midodrine (Proamatine -) 5 mg PO TID-MID [facility] Last Admin: 06/16/16 17:31 Dose: 5 mg Potassium Chloride (K-Dur -) 40 meq PO DAILY [facility] Last Admin: 06/16/16 09:22 Dose: 40 meq - Objective Vital Signs: Vital Signs Temperature 97.9 F 06/17/16 06:00 Pulse Rate 53 L 06/17/16 06:00 Respiratory Rate 20 06/17/16 06:00 Blood Pressure 123/61 06/17/16 06:00 O2 Sat by Pulse Oximetry (%) 98 06/16/16 21:00 Constitutional: Yes: No Distress, Calm Eyes: No: Sclera Icterus HENT: No: Nasal Congestion Cardiovascular: Yes: Regular Rate and Rhythm, JVD (6cm at 90 degrees), S1, S2, Other (PMI non diplaced). No: Gallop, Murmur Respiratory: Yes: CTA Bilaterally. No: Accessory Muscle Use, Rales, Wheezes Gastrointestinal: Yes: Normal Bowel Sounds, Soft. No: Tenderness Musculoskeletal: Yes: Other (No kyphosis) Extremities: No: Cold Edema: No Integumentary: No: Jaundice Neurological: Yes: Alert, Oriented (x3) Psychiatric: No: Agitated Labs: CBC, BMP 06/17/16 05:35 06/17/16 05:35 - ....Imaging EKG: Other (tele: NSR; NSVT max 8b) Assessment/Plan Echo 05/2016: Mod LV dilation, severely impaired lv fn (global), EF 20% - biplane EF 24%. nl rv. severe LAE. mild-mod mr/tr. rvsp at least 38 mmHg. IVC with respirophasic variation. Echo 01/2016 [facility]: Mod LV dil. EF 25-30%, NL RV. mild-mod MR. Mod TR. mild phtn. Echo 12/14 ([facility]): mod LVE; severe decr EF global; dd1; nl RV; normal PV syst flow; mild L/JAQUELINE; mild-mod MR/TR; mild pHTN (48); small peric eff LHC 2001 ([facility]): normal cor.s; mild, diffuse LV hypo (EF 54%); mild-mod LVH; (done for evaluation of cardimyopathy or pericardial dz) MIBI 2010 (per): dil LV with mod global HK (40%); fixed infer/inferoapical defect; no isch 76 yo with h/o nonisch CMP, VT--s/p ICD, SOUMYA, breast Ca--mastectomy, s/p Carloz, uterine CA s/p chemo presents with hyponatremia. NICM, - acute exacerbation in setting of leaving AMA last week and subsequent non- adherence to medications - Concern for superimposed RV failure on last admit. - Hepatic congestion continues to improve (from LFT's on last admit). - recent home dry weight 101-103. - treating with lasix 80 mg IV BID. - 06/17: wt down 109 to 108, now stalled at 108 again today; bun/creat stable, Na trending down--she remains vol overloaded clinically with marked incr JVP pressure - incr lasix 80 iv bid to 80 iv tid today--reassess labs and wt in am - low bp (intolerant of even low dose lisin 2.5mg with presyncope/syncope) will not tolerate Entresto. con't coreg. -QRS 120msec, low likelihood for clinical response to [facility] upgrade per my d/w EP- -will offer to pt if cannot control her chf with appropriate meds (i.e. once she is complying) -do not recommend pt go back home without services as she has repeatedly demonstrated inability to correctly comply with meds and home wt monitoring VT s/p ICD - Recent office check normal. Con't routine outpatient monitoring. - tele stable here--runs of NSVT as per usual SOUMYA - patient declines treatment
[2016-06-17] MEDS: CARVEDILOL 12.5 MG TABLET (FP) PO SCH ×2 (10:01→21:35)
[2016-06-17] MEDS: POTASSIUM CHLORIDE TABS 20 MEQ TABLET.ER (FP) PO SCH (10:02)
[2016-06-17] MEDS: ASPIRIN COATED 81 MG TABLET.EC PO SCH (10:02)
[2016-06-17] MEDS: MAGNESIUM OXIDE 400 MG TABLET (FP) PO SCH (10:03)
[2016-06-17] MEDS: MIDODRINE HCL 5 MG TABLET PO SCH ×3 (10:03→18:20)
[2016-06-17] MEDS ORDERED: PT OWN MED DRAWER 7, Y5N ONE ×2 (14:12→17:35)
[2016-06-17] MEDS ORDERED: MAG HYDROX/AL HYDROX/SIMETH 30 ML UNIT-DOSE CUP PO PRN (19:28)
--- NOTE | 2016-06-17 19:31 | PN ---
Physical Exam: SUBJECTIVE: Patient seen and examined oob to chair. Leg swelling is much improved. Breathing is better. OBJECTIVE: Vital Signs Period Temp Pulse Resp BP Sys/Drake Pulse Ox Last 24 Hr 97.4 F-98.4 F 53-86 18-20 96-123/42-71 98 GENERAL: The patient is awake, alert, and fully oriented, in no acute distress. HEAD: Normal with no signs of trauma. EYES: PERRL, extraocular movements intact, sclera anicteric, conjunctiva clear. No ptosis. LUNGS: Bilateral crackles 1/[address] up HEART: Regular rate and rhythm, S1, S2 without murmur, rub or gallop. ABDOMEN: Soft, nontender, nondistended, normoactive bowel sounds, no guarding, no rebound EXTREMITIES: 2+ pulses, warm, well-perfused, edema resolved NEUROLOGICAL: Cranial nerves II through XII grossly intact. Normal speech, gait not observed. Laboratory Results - last 24 hr 06/16/16 06/17/16 06/17/16 20:40 05:35 05:35 WBC 6.8 RBC 3.19 L Hgb 9.1 L D Hct 28.2 L MCV 88.4 MCHC 32.3 RDW 15.7 H Plt Count 192 MPV 8.6 Neutrophils % 74.5 Lymphocytes % 10.9 D Monocytes % 13.1 H Eosinophils % 1.1 Basophils % 0.4 Sodium 134 L Potassium 3.9 D 3.5 Chloride 91 L Carbon Dioxide 32 Anion Gap 11 BUN 20 H Creatinine 0.9 Creat Clearance w eGFR > 60 Random Glucose 117 H Calcium 7.8 L Magnesium 2.4 D Total Bilirubin 0.8 D AST 40 H D ALT 187 H D Alkaline Phosphatase 168 H Total Protein 5.2 L Albumin 2.8 L 06/17/16 06/17/16 05:35 14:30 WBC RBC Hgb Hct MCV MCHC RDW Plt Count MPV Neutrophils % Lymphocytes % Monocytes % Eosinophils % Basophils % Sodium Potassium 3.8 Chloride Carbon Dioxide Anion Gap BUN Creatinine Creat Clearance w eGFR Random Glucose Calcium Magnesium Cancelled Total Bilirubin AST ALT Alkaline Phosphatase Total Protein Albumin Active Medications Generic Name Dose Route Start Last Admin Trade Name Freq PRN Reason Stop Dose Admin Al Hydroxide/Mg Hydroxide 30 ml 06/17/16 19:28 Mylanta Oral Suspension - PO Q6H PRN DYSPEPSIA Aspirin 81 mg 06/15/16 10:00 06/17/16 10:02 Ecotrin - PO 81 mg DAILY [facility] Administration Carvedilol 12.5 mg 06/15/16 10:00 06/17/16 10:01 Coreg - PO 12.5 mg BID N[facility]AS Administration Docusate Sodium 100 mg 06/15/16 07:36 Colace - PO DAILY PRN CONSTIPATION Furosemide 80 mg 06/17/16 16:14 Lasix Injection - IVPB TID [facility] Magnesium Oxide 400 mg 06/15/16 10:00 06/17/16 10:03 Mag-Ox - PO 400 mg DAILY [facility] Administration Midodrine 5 mg 06/15/16 10:00 06/17/16 18:20 Proamatine - PO 5 mg TID-MID [facility] Administration Potassium Chloride 40 meq 06/15/16 10:00 06/17/16 10:02 K-Dur - PO 40 meq DAILY [facility] Administration Imaging Echo 05/2016: Mod LV dilation, severely impaired lv fn (global), EF 20% - biplane EF 24%. nl rv. severe LAE. mild-mod mr/tr. rvsp at least 38 mmHg. IVC with respirophasic variation. LHC 2001 ([facility]): normal cor.s; mild, diffuse LV hypo (EF 54%); mild-mod LVH MIBI 2010 (per): dil LV with mod global HK (40%); fixed infer/inferoapical defect; no ischemia ASSESSMENT/PLAN 76 year-old female with a significant PMH of HTN, NICM, systolic HF s/p PPM/AICD , breast cancer s/p mastectomy, uterine cancer s/p chemo, and hyponatremia. Admitted for HF exacerbation. Acute on chronic systolic heart failure --lower extremity edema improved --continue aggressive diuresis, renal function stable --daily weights Hypertension --BP well-controlled --continue Coreg Orthostatic hypotension --continue midodrine Transaminitis --AST/ALT trending down Hypokalemia --frequent K checks Hyponatremia --improved F/E/N Fluids: PO intake adequate Electrolytes: replete as indicated Nutrition: low sodium DVT prophylaxis: lovenox, oob, ambulation Disposition: Continues to require inpatient hospitalization. Cardiology advocates patient needs services if to return home due to non-compliance. Full Code. Visit type - Emergency Visit Emergency Visit: Yes ED Registration Date: 06/14/16 Care time: The patient presented to the Emergency Department on the above date and was hospitalized for further evaluation of their emergent condition. - New Patient This patient is new to me today: Yes Date on this admission: 06/17/16 - Critical Care Critical Care patient: No
[2016-06-17] MEDS ORDERED: ZOLPIDEM TARTRATE 5 MG TABLET PO ONE (22:26)
[2016-06-18] MEDS: FUROSEMIDE 40 MG/4 ML INJECTABLE VIAL IVPB SCH ×3 (07:01→22:02)
[2016-06-18 07:17] LABS: BASOPHIL 0.5 % (0-2.0); EOSINOPHIL 1.3 % (0-4.5); MCH 28.5 pg (25.7-33.7); MCHC 32.5 g/dl (32.0-36.0); MEAN CELL VOLUME 87.5 fl (80-96); MEAN PLT VOLUME 8.5 fl (7.5-11.1); NEUTROPHILS 69.5 % (42.8-82.8); PLATELET COUNT 184 K/MM3 (134-434); RDW 15.3 % (11.6-15.6); WHITE BLOOD COUNT 4.9 K/mm3 (4.0-10.0)
[2016-06-18 07:46] LABS: ALBUMIN 2.9 g/dl (3.4-5.0); CALCIUM 7.8 mg/dL (8.5-10.1)
[2016-06-18 07:49] LABS: BILIRUBIN,TOTAL 0.7 mg/dL (0.2-1.0); TOT PROT 5.5 g/dl (6.4-8.2)
[2016-06-18] MEDS: CARVEDILOL 12.5 MG TABLET (FP) PO SCH ×2 (09:12→22:01)
[2016-06-18] MEDS: ASPIRIN COATED 81 MG TABLET.EC PO SCH (09:12)
[2016-06-18] MEDS: POTASSIUM CHLORIDE TABS 20 MEQ TABLET.ER (FP) PO SCH (09:13)
[2016-06-18] MEDS: ENOXAPARIN NA (PORCINE) 40 MG/0.4 ML DISP.SYRIN SQ SCH (09:13)
[2016-06-18] MEDS: MAGNESIUM OXIDE 400 MG TABLET (FP) PO SCH (09:13)
[2016-06-18] MEDS: MIDODRINE HCL 5 MG TABLET PO SCH ×3 (09:14→17:14)
[2016-06-18] MEDS ORDERED: POTASSIUM CHLORIDE TABS 20 MEQ TABLET.ER (FP) PO ONE ×2 (10:28→15:00)
--- NOTE | 2016-06-18 10:29 | PN ---
Physical Exam: SUBJECTIVE: Patient seen and examined. Feels fatigued. OBJECTIVE: Vital Signs Period Temp Pulse Resp BP Sys/Drake Pulse Ox Last 24 Hr 97.4 F-98.0 F 72-84 18-20 96-141/45-71 98 GENERAL: The patient is awake, alert, and fully oriented, in no acute distress. HEAD: Normal with no signs of trauma. EYES: PERRL, extraocular movements intact, sclera anicteric, conjunctiva clear. No ptosis. LUNGS: Bilateral crackles 1/[address] way up HEART: Regular rate and rhythm, S1, S2 without murmur, rub or gallop. +JVD ABDOMEN: Soft, nontender, nondistended, normoactive bowel sounds, no guarding, no rebound EXTREMITIES: 2+ pulses, warm, well-perfused, edema resolved NEUROLOGICAL: Cranial nerves II through XII grossly intact. Normal speech, gait not observed. Laboratory Results - last 24 hr 06/17/16 06/18/16 06/18/16 14:30 05:35 05:35 WBC 4.9 RBC 3.19 L Hgb 9.1 L Hct 27.9 L MCV 87.5 MCHC 32.5 RDW 15.3 Plt Count 184 MPV 8.5 Neutrophils % 69.5 Lymphocytes % 13.6 D Monocytes % 15.1 H Eosinophils % 1.3 Basophils % 0.5 Sodium 132 L Potassium 3.8 3.3 L Chloride 90 L Carbon Dioxide 33 H Anion Gap 9 BUN 23 H Creatinine 1.0 Creat Clearance w eGFR 53.62 Random Glucose 107 H Calcium 7.8 L Magnesium 2.0 Total Bilirubin 0.7 AST 36 ALT 167 H Alkaline Phosphatase 162 H Total Protein 5.5 L Albumin 2.9 L Active Medications Generic Name Dose Route Start Last Admin Trade Name Freq PRN Reason Stop Dose Admin Al Hydroxide/Mg Hydroxide 30 ml 06/17/16 19:28 Mylanta Oral Suspension - PO Q6H PRN DYSPEPSIA Aspirin 81 mg 06/15/16 10:00 06/18/16 09:12 Ecotrin - PO 81 mg DAILY [facility] Administration Carvedilol 12.5 mg 06/15/16 10:00 06/18/16 09:12 Coreg - PO 12.5 mg BID N[facility] Administration Docusate Sodium 100 mg 06/15/16 07:36 Colace - PO DAILY PRN CONSTIPATION Enoxaparin Sodium 40 mg 06/18/16 10:00 06/18/16 09:13 Lovenox - SQ 40 mg DAILY [facility] Administration Furosemide 80 mg 06/17/16 16:14 06/18/16 07:01 Lasix Injection - IVPB 80 mg TID [facility] Administration Magnesium Oxide 400 mg 06/15/16 10:00 06/18/16 09:13 Mag-Ox - PO 400 mg DAILY [facility] Administration Midodrine 5 mg 06/15/16 10:00 06/18/16 09:14 Proamatine - PO 5 mg TID-MID N[facility] Administration Potassium Chloride 40 meq 06/15/16 10:00 06/18/16 09:13 K-Dur - PO 40 meq DAILY [facility] Administration Potassium Chloride 40 meq 06/18/16 10:28 K-Dur - PO 06/18/16 10:29 ONCE ONE Imaging Echo 05/2016: Mod LV dilation, severely impaired lv fn (global), EF 20% - biplane EF 24%. nl rv. severe LAE. mild-mod mr/tr. rvsp at least 38 mmHg. IVC with respirophasic variation. LHC 2001 ([facility]): normal cor.s; mild, diffuse LV hypo (EF 54%); mild-mod LVH MIBI 2010 (per): dil LV with mod global HK (40%); fixed infer/inferoapical defect; no ischemia ASSESSMENT/PLAN 76 year-old female with a significant PMH of HTN, NICM, systolic HF s/p PPM/AICD , breast cancer s/p mastectomy, uterine cancer s/p chemo, and hyponatremia. Admitted for HF exacerbation. Acute on chronic systolic heart failure --lower extremity edema improved, still with bibasilar crackles and +JVD --continue aggressive diuresis, renal function remains stable --daily weights; down 3kg since 06/14 which is significant for this tiny lady Hypertension --BP well-controlled --continue Coreg Orthostatic hypotension --continue midodrine Transaminitis --AST/ALT trending down Hypokalemia --Kdur 40meq daily plus PRN --frequent K checks Hyponatremia --Na 132 F/E/N Fluids: PO intake adequate Electrolytes: replete as indicated Nutrition: low sodium PT evaluation DVT prophylaxis: lovenox, oob, ambulation Disposition: Needs PT eval to see if qualified for SNF. Continues to require inpatient hospitalization. Full code. Visit type - Emergency Visit Emergency Visit: Yes ED Registration Date: 06/14/16 Care time: The patient presented to the Emergency Department on the above date and was hospitalized for further evaluation of their emergent condition. - New Patient This patient is new to me today: No - Critical Care Critical Care patient: No
--- NOTE | 2016-06-18 11:21 | PN ---
Progress Note (short form) - Note Progress Note: Chief Complaint: chf History of Present Illness: leg swelling much resolved no cp, palpit, sob. still with early satiety, abdominal bloating lasix increased to TID yesterday. no cigs Current Medications Al Hydroxide/Mg Hydroxide (Mylanta Oral Suspension -) 30 ml PO Q6H PRN PRN Reason: DYSPEPSIA Aspirin (Ecotrin -) 81 mg PO DAILY [facility] Last Admin: 06/18/16 09:12 Dose: 81 mg Carvedilol (Coreg -) 12.5 mg PO BID [facility] Last Admin: 06/18/16 09:12 Dose: 12.5 mg Docusate Sodium (Colace -) 100 mg PO DAILY PRN PRN Reason: CONSTIPATION Enoxaparin Sodium (Lovenox -) 40 mg SQ DAILY [facility] Last Admin: 06/18/16 09:13 Dose: 40 mg Furosemide (Lasix Injection -) 80 mg IVPB TID [facility] Last Admin: 06/18/16 07:01 Dose: 80 mg Magnesium Oxide (Mag-Ox -) 400 mg PO DAILY [facility] Last Admin: 06/18/16 09:13 Dose: 400 mg Midodrine (Proamatine -) 5 mg PO TID-MID [facility] Last Admin: 06/18/16 09:14 Dose: 5 mg Potassium Chloride (K-Dur -) 40 meq PO DAILY [facility] Last Admin: 06/18/16 09:13 Dose: 40 meq Potassium Chloride (K-Dur -) 40 meq PO ONCE ONE Stop: 06/18/16 15:01 Vital Signs - 24 hr 06/17/16 06/17/16 06/17/16 11:26 14:17 15:36 Temperature 98 F 97.4 F L Pulse Rate 80 72 76 Respiratory 18 20 Rate Blood Pressure 123/60 99/45 96/46 O2 Sat by Pulse Oximetry (%) 06/17/16 06/17/16 06/17/16 18:00 21:00 21:34 Temperature 98.0 F 98 F Pulse Rate 72 80 Respiratory 20 20 20 Rate Blood Pressure 107/71 116/69 O2 Sat by Pulse 98 Oximetry (%) 06/18/16 06/18/16 06/18/16 02:32 04:00 07:02 Temperature 97.8 F 98 F Pulse Rate 84 84 80 Respiratory 20 20 20 Rate Blood Pressure 141/51 113/70 110/70 O2 Sat by Pulse Oximetry (%) 06/18/16 06/18/16 09:00 10:00 Temperature 98 F Pulse Rate 74 Respiratory 20 Rate Blood Pressure 115/46 O2 Sat by Pulse 97 Oximetry (%) Intake & Output 06/16/16 06/17/16 06/18/16 06/19/16 07:59 07:59 07:59 07:59 Intake Total 680 2070 Output Total 1600 1100 1100 Balance -920 970 -1100 Weight 108 lb 8 oz 108 lb 8 oz 106 lb Constitutional: Yes: No Distress, Calm Eyes: No: Sclera Icterus HENT: No: Nasal Congestion Cardiovascular: Yes: Regular Rate and Rhythm, JVD (6cm at 90 degrees), S1, S2, Other (PMI non diplaced). 2/6 murmur at apex. Respiratory: Yes: CTA Bilaterally. No: Accessory Muscle Use, Rales, Wheezes Gastrointestinal: Yes: Normal Bowel Sounds, Soft. No: Tenderness Musculoskeletal: Yes: Other (No kyphosis) Extremities: No: Cold Edema: No Integumentary: No: Jaundice Neurological: Yes: Alert, Oriented (x3) Psychiatric: No: Agitated Labs: CBC, BMP 06/18/16 05:35 06/18/16 05:35 Laboratory Tests 06/18/16 05:35 Total Bilirubin 0.7 AST 36 ALT 167 H Alkaline Phosphatase 162 H - ....Imaging EKG: Other (tele: NSR; pvc, rare demand pacing. rare NSVT ) Assessment/Plan Echo 05/2016: Mod LV dilation, severely impaired lv fn (global), EF 20% - biplane EF 24%. nl rv. severe LAE. mild-mod mr/tr. rvsp at least 38 mmHg. IVC with respirophasic variation. Echo 01/2016 [facility]: Mod LV dil. EF 25-30%, NL RV. mild-mod MR. Mod TR. mild phtn. 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 NICM, - acute exacerbation in setting of leaving AMA last week and subsequent non- adherence to medications - Concern for superimposed RV failure on last admit. - Hepatic congestion continues to improve (from LFT's on last admit). - recent home dry weight 101-103. - treating with lasix 80 mg IV BID. - 06/17: wt down 109 to 108, now stalled at 108 again today; bun/creat stable, Na trending down--she remains vol overloaded clinically with marked incr JVP pressure --> incr lasix 80 iv bid to 80 iv tid today--reassess labs and wt in am - 06/18: still volume up. con't lasix TID dosing for now. aggressive potassium repletion. - low bp (intolerant of even low dose lisin 2.5mg with presyncope/syncope) will not tolerate Entresto. con't coreg. 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 once she is complying) -do not recommend pt go back home without services as she has repeatedly demonstrated inability to correctly comply with meds and home wt monitoring [place] s/p ICD - Recent office check normal. Con't routine outpatient monitoring. - tele stable here--runs of NSVT as per usual SOUMYA - patient declines treatment
[2016-06-18] MEDS ORDERED: ZOLPIDEM TARTRATE 5 MG TABLET PO PRN (20:27)
[2016-06-18] MEDS ORDERED: ZOLPIDEM TARTRATE 5 MG TABLET PO ONE (23:59)
[2016-06-19] MEDS: FUROSEMIDE 40 MG/4 ML INJECTABLE VIAL IVPB SCH (06:41)
[2016-06-19] MEDS ORDERED: PT OWN MED DRAWER 7, Y5N ONE ×3 (08:59→16:30)
[2016-06-19 09:27] LABS: CALCIUM 7.7 mg/dL (8.5-10.1)
[2016-06-19 09:30] LABS: BILIRUBIN,TOTAL 0.9 mg/dL (0.2-1.0); CREATININE 1.2 mg/dL (0.55-1.02); TOT PROT 5.5 g/dl (6.4-8.2)
[2016-06-19] MEDS: ENOXAPARIN NA (PORCINE) 40 MG/0.4 ML DISP.SYRIN SQ SCH (09:32)
[2016-06-19] MEDS: MIDODRINE HCL 5 MG TABLET PO SCH ×3 (09:33→17:10)
[2016-06-19] MEDS: CARVEDILOL 12.5 MG TABLET (FP) PO SCH ×2 (09:33→22:19)
[2016-06-19] MEDS: MAGNESIUM OXIDE 400 MG TABLET (FP) PO SCH (09:33)
[2016-06-19] MEDS: ASPIRIN COATED 81 MG TABLET.EC PO SCH (09:33)
[2016-06-19] MEDS: POTASSIUM CHLORIDE TABS 20 MEQ TABLET.ER (FP) PO SCH (09:33)
--- NOTE | 2016-06-19 11:10 | PN ---
Progress Note (short form) - Note Progress Note: Chief Complaint: chf History of Present Illness: leg swelling resolved no cp, palpit, sob. no orthopnea no overnight events feels well walking around room main complaint today is not getting enough sleep in hospital and that she wants to go home today no cigs Current Medications Generic Name Dose Route Start Last Admin Trade Name Wilfridoq PRN Reason Stop Dose Admin Al Hydroxide/Mg Hydroxide 30 ml 06/17/16 19:28 Mylanta Oral Suspension - PO Q6H PRN DYSPEPSIA Aspirin 81 mg 06/15/16 10:00 06/19/16 09:33 Ecotrin - PO 81 mg DAILY [facility] Administration Carvedilol 12.5 mg 06/15/16 10:00 06/19/16 09:33 Coreg - PO 12.5 mg BID [facility] Administration Docusate Sodium 100 mg 06/15/16 07:36 Colace - PO DAILY PRN CONSTIPATION Enoxaparin Sodium 40 mg 06/18/16 10:00 06/19/16 09:32 Lovenox - SQ 40 mg DAILY [facility] Administration Magnesium Oxide 400 mg 06/15/16 10:00 06/19/16 09:33 Mag-Ox - PO 400 mg DAILY [facility] Administration Midodrine 5 mg 06/15/16 10:00 06/19/16 09:33 Proamatine - PO 5 mg TID-MID NIK[facility] Administration Potassium Chloride 40 meq 06/15/16 10:00 06/19/16 09:33 K-Dur - PO 40 meq DAILY [facility] Administration Zolpidem Tartrate 5 mg 06/18/16 20:27 06/18/16 22:01 Ambien - PO 5 mg HS PRN Administration INSOMNIA Vital Signs Period Temp Pulse Resp BP Sys/Drake Pulse Ox Last 24 Hr 97 F-98.2 F 68-94 18-20 101-117/51-61 97-97 Constitutional: Yes: No Distress, Calm Eyes: No: Sclera Icterus HENT: No: Nasal Congestion Cardiovascular: Yes: ++JVD, Regular Rate and Rhythm, S1, S2, Other (PMI non diplaced). 2/6 murmur at apex. Respiratory: Yes: CTA Bilaterally. No: Accessory Muscle Use, Rales, Wheezes Gastrointestinal: Yes: Normal Bowel Sounds, Soft. No: Tenderness Musculoskeletal: Yes: Other (No kyphosis) Extremities: No: Cold Edema: No le e/c/c Integumentary: No: Jaundice diaphoresis Neurological: Yes: Alert, Oriented (x3) Psychiatric: No: Agitated pos dp pt Laboratory Last Values WBC 4.9 K/mm3 (4.0-10.0) 06/18/16 05:35 RBC 3.19 M/mm3 (3.60-5.2) L 06/18/16 05:35 Hgb 9.1 GM/dL (10.7-15.3) L 06/18/16 05:35 Hct 27.9 % (32.4-45.2) L 06/18/16 05:35 MCV 87.5 fl (80-96) 06/18/16 05:35 MCHC 32.5 g/dl (32.0-36.0) 06/18/16 05:35 RDW 15.3 % (11.6-15.6) 06/18/16 05:35 Plt Count 184 K/MM3 (134-434) 06/18/16 05:35 MPV 8.5 fl (7.5-11.1) 06/18/16 05:35 Neutrophils % 69.5 % (42.8-82.8) 06/18/16 05:35 Lymphocytes % 13.6 % (8-40) D 06/18/16 05:35 Monocytes % 15.1 % (3.8-10.2) H 06/18/16 05:35 Eosinophils % 1.3 % (0-4.5) 06/18/16 05:35 Basophils % 0.5 % (0-2.0) 06/18/16 05:35 Sodium 128 mmol/L (136-145) L 06/19/16 05:35 Potassium 4.6 mmol/L (3.5-5.1) D 06/19/16 05:35 Chloride 88 mmol/L (98-107) L 06/19/16 05:35 Carbon Dioxide 27 mmol/L (21-32) 06/19/16 05:35 Anion Gap 13 (8-16) 06/19/16 05:35 BUN 26 mg/dL (7-18) H 06/19/16 05:35 Creatinine 1.2 mg/dL (0.55-1.02) H 06/19/16 05:35 Creat Clearance w eGFR 43.45 (>60) 06/19/16 05:35 Random Glucose 110 mg/dL (74-106) H 06/19/16 05:35 Calcium 7.7 mg/dL (8.5-10.1) L 06/19/16 05:35 Magnesium 2.0 mg/dL (1.8-2.4) 06/18/16 05:35 Total Bilirubin 0.9 mg/dL (0.2-1.0) D 06/19/16 05:35 AST 49 U/L (15-37) H D 06/19/16 05:35 ALT 151 U/L (12-78) H 06/19/16 05:35 Alkaline Phosphatase 175 U/L (45-117) H 06/19/16 05:35 B-Natriuretic Peptide 93173.20 pg/ml (5-450) H 06/14/16 13:20 Total Protein 5.5 g/dl (6.4-8.2) L 06/19/16 05:35 Albumin 3.0 g/dl (3.4-5.0) L 06/19/16 05:35 Urine Color Yellow 06/14/16 12:50 Urine Appearance Cloudy 06/14/16 12:50 Urine pH 6.0 (5.0-8.0) 06/14/16 12:50 Ur Specific [place] 1.012 (1.001-1.035) 06/14/16 12:50 Urine Protein Negative (NEGATIVE) 06/14/16 12:50 Urine Glucose (UA) Negative (NEGATIVE) 06/14/16 12:50 Urine Ketones Negative (NEGATIVE) 06/14/16 12:50 Urine Blood Negative (NEGATIVE) 06/14/16 12:50 Urine Nitrite Negative (NEGATIVE) 06/14/16 12:50 Urine Bilirubin Negative (NEGATIVE) 06/14/16 12:50 Urine Urobilinogen Negative E.U./dl (0.2-1.0) 06/14/16 12:50 Ur Leukocyte Esterase 3+ (NEGATIVE) H 06/14/16 12:50 Urine RBC 5 /hpf (0-3) 06/14/16 12:50 Urine WBC 1177 /hpf (3-5) 06/14/16 12:50 Ur Epithelial Cells Rare /hpf (FEW) 06/14/16 12:50 Urine Bacteria Rare /hpf (NONE SEEN) 06/14/16 12:50 tele: sr, occ pvcs Echo 05/2016: Mod LV dilation, severely impaired lv fn (global), EF 20% - biplane EF 24%. nl rv. severe LAE. mild-mod mr/tr. rvsp at least 38 mmHg. IVC with respirophasic variation. Echo 01/2016 [facility]: Mod LV dil. EF 25-30%, NL RV. mild-mod MR. Mod TR. mild phtn. Echo 12/14 ([facility]): mod LVE; severe decr EF global; dd1; nl RV; normal PV syst flow; mild L/JAQUELINE; mild-mod MR/TR; mild pHTN (48); small peric eff LHC 2001 ([facility]): normal cor.s; mild, diffuse LV hypo (EF 54%); mild-mod LVH; (done for evaluation of cardimyopathy or pericardial dz) MIBI 2010 (per): dil LV with mod global HK (40%); fixed infer/inferoapical defect; no isch a/p: 76 yo with h/o nonisch CMP, [place]--s/p ICD, SOUMYA, breast Ca--mastectomy, s/p Carloz, uterine CA s/p chemo presents with hyponatremia. NICM, - acute exacerbation in setting of leaving AMA last week and subsequent non- adherence to medications - Concern for superimposed RV failure on last admit. - Hepatic congestion continues to improve (from LFT's on last admit). - recent home dry weight 101-103. - treating with lasix 80 mg IV BID. - 06/17: wt down 109 to 108, now stalled at 108 again today; bun/creat stable, Na trending down--she remains vol overloaded clinically with marked incr JVP pressure --> incr lasix 80 iv bid to 80 iv tid today--reassess labs and wt in am - 06/18: still volume up. con't lasix TID dosing for now. aggressive potassium repletion. - 06/19: cr up and na down today but still with JVD and wt not back to baseline. Ideally would try iv lasix with milrinone to see if more vol can come off but pt adamant about going home today and thus would have to be AMA again. If this is case would give torsemide 50 mg qd. - low bp (intolerant of even low dose lisin 2.5mg with presyncope/syncope) will not tolerate Entresto. con't coreg. 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 once she is complying) -do not recommend pt go back home without services as she has repeatedly demonstrated inability to correctly comply with meds and home wt monitoring [place] s/p ICD - Recent office check normal. Con't routine outpatient monitoring. - tele stable here--runs of NSVT as per usual SOUMYA - patient declines treatment
[2016-06-19] MEDS ORDERED: ZOLPIDEM TARTRATE 5 MG TABLET PO PRN (15:38)
--- NOTE | 2016-06-19 16:06 | PN ---
Physical Exam: SUBJECTIVE: Patient seen and examined. Wants to go home but agreed to stay for now. Voices no complaints other than she cannot get a good night's sleep. OBJECTIVE: Vital Signs Period Temp Pulse Resp BP Sys/Drake Pulse Ox Last 24 Hr 97 F-97.6 F 62-94 18-20 101-117/51-61 97-97 GENERAL: The patient is awake, alert, and fully oriented, in no acute distress. HEAD: Normal with no signs of trauma. EYES: PERRL, extraocular movements intact, sclera anicteric, conjunctiva clear. No ptosis. LUNGS: Breath sounds CTA HEART: Regular rate and rhythm, S1, S2 without murmur, rub or gallop. ABDOMEN: Soft, nontender, nondistended, normoactive bowel sounds, no guarding, no rebound EXTREMITIES: 2+ pulses, warm, well-perfused, no edema. NEUROLOGICAL: Cranial nerves II through XII grossly intact. Normal speech, steady gait. PSYCH: Normal mood, normal affect. SKIN: Warm, dry, normal turgor, no rashes or lesions noted Laboratory Results - last 24 hr 06/18/16 06/19/16 06/19/16 14:10 05:35 14:10 Sodium 128 L Potassium 3.7 4.6 D 4.7 Chloride 88 L Carbon Dioxide 27 Anion Gap 13 BUN 26 H Creatinine 1.2 H Creat Clearance w eGFR 43.45 Random Glucose 110 H Calcium 7.7 L Total Bilirubin 0.9 D AST 49 H D ALT 151 H Alkaline Phosphatase 175 H Total Protein 5.5 L Albumin 3.0 L Active Medications Generic Name Dose Route Start Last Admin Trade Name Freq PRN Reason Stop Dose Admin Al Hydroxide/Mg Hydroxide 30 ml 06/17/16 19:28 Mylanta Oral Suspension - PO Q6H PRN DYSPEPSIA Aspirin 81 mg 06/15/16 10:00 06/19/16 09:33 Ecotrin - PO 81 mg DAILY [facility] Administration Carvedilol 12.5 mg 06/15/16 10:00 06/19/16 09:33 Coreg - PO 12.5 mg BID [facility] Administration Docusate Sodium 100 mg 06/15/16 07:36 Colace - PO DAILY PRN CONSTIPATION Enoxaparin Sodium 40 mg 06/18/16 10:00 06/19/16 09:32 Lovenox - SQ 40 mg DAILY [facility] Administration Furosemide 80 mg 06/20/16 16:00 Lasix Injection - IVPUSH BID@0600,1400 [facility] Milrinone Lactate/Dextrose 100 mls @ 3.683 mls/hr 06/19/16 16:00 Milrinone 20mg/100ml Ivpb - IVPB TITR NIKOLAS Protocol 0.25 MCG/KG/MIN Magnesium Oxide 400 mg 06/15/16 10:00 06/19/16 09:33 Mag-Ox - PO 400 mg DAILY [facility] Administration Midodrine 5 mg 06/15/16 10:00 06/19/16 14:18 Proamatine - PO 5 mg TID-MID N[facility]AS Administration Potassium Chloride 40 meq 06/15/16 10:00 06/19/16 09:33 K-Dur - PO 40 meq DAILY [facility] Administration Zolpidem Tartrate 5 mg 06/19/16 15:38 Ambien - PO HS PRN INSOMNIA Imaging Echo 05/2016: Mod LV dilation, severely impaired lv fn (global), EF 20% - biplane EF 24%. nl rv. severe LAE. mild-mod mr/tr. rvsp at least 38 mmHg. IVC with respirophasic variation. LHC 2001 ([facility]): normal cor.s; mild, diffuse LV hypo (EF 54%); mild-mod LVH MIBI 2010 (per): dil LV with mod global HK (40%); fixed infer/inferoapical defect; no ischemia ASSESSMENT/PLAN 76 year-old female with a significant PMH of HTN, NICM, systolic HF s/p PPM/AICD , breast cancer s/p mastectomy, uterine cancer s/p chemo, and hyponatremia. Admitted for HF exacerbation. Acute on chronic systolic heart failure --lower extremity edema improved, lungs clear, ~5 pounds over dry weight --if patient stays, start IV milrinone 0.25mcg/kg/min and Lasix IV 80mg BID per cardiology Hypertension --BP well-controlled --continue Coreg Orthostatic hypotension --continue midodrine Transaminitis --AST/ALT mild trend up Hypokalemia --K4.6 today --Kdur 40meq daily plus PRN --frequent K checks Hyponatremia --Na 128 (<--132) F/E/N Fluids: PO intake adequate Electrolytes: replete as indicated Nutrition: low sodium PT evaluation: ambulatory >100 feet DVT prophylaxis: lovenox, oob, ambulation Disposition: Continues to require inpatient hospitalization. Full code. Visit type - Emergency Visit Emergency Visit: Yes ED Registration Date: 06/14/16 Care time: The patient presented to the Emergency Department on the above date and was hospitalized for further evaluation of their emergent condition. - New Patient This patient is new to me today: No - Critical Care Critical Care patient: No
[2016-06-19] MEDS: MILRINONE 20MG/100ML IVPB - 100 ML IVPB SCH (16:42)
[2016-06-19] MEDS: ZOLPIDEM TARTRATE 5 MG TABLET PO PRN (22:19)
[2016-06-20 07:49] LABS: BASOPHIL 0.6 % (0-2.0); EOSINOPHIL 0.7 % (0-4.5); MCH 28.2 pg (25.7-33.7); MEAN CELL VOLUME 85.5 fl (80-96); NEUTROPHILS 81.3 % (42.8-82.8); PLATELET COUNT 201 K/MM3 (134-434); RDW 15.1 % (11.6-15.6); WHITE BLOOD COUNT 7.1 K/mm3 (4.0-10.0)
[2016-06-20 08:38] LABS: ALBUMIN 2.9 g/dl (3.4-5.0); BILIRUBIN,TOTAL 0.8 mg/dL (0.2-1.0); CALCIUM 8.3 mg/dL (8.5-10.1); CREATININE 1.1 mg/dL (0.55-1.02); MAGNESIUM 1.9 mg/dL (1.8-2.4); TOT PROT 5.3 g/dl (6.4-8.2)
[2016-06-20] MEDS: POTASSIUM CHLORIDE TABS 20 MEQ TABLET.ER (FP) PO SCH (09:16)
[2016-06-20] MEDS ORDERED: PT OWN MED DRAWER 7, Y5N ONE (09:16)
[2016-06-20] MEDS: MIDODRINE HCL 5 MG TABLET PO SCH ×3 (09:17→17:52)
[2016-06-20] MEDS: ASPIRIN COATED 81 MG TABLET.EC PO SCH (09:17)
[2016-06-20] MEDS: MAGNESIUM OXIDE 400 MG TABLET (FP) PO SCH (09:17)
[2016-06-20] MEDS: ENOXAPARIN NA (PORCINE) 40 MG/0.4 ML DISP.SYRIN SQ SCH (09:17)
[2016-06-20] MEDS: CARVEDILOL 12.5 MG TABLET (FP) PO SCH ×2 (09:19→21:51)
--- NOTE | 2016-06-20 11:04 | PN ---
Progress Note (short form) - Note Progress Note: Chief Complaint: chf History of Present Illness: leg swelling resolved no cp, palpit, sob. no dizzy, no loc, no orthopnea no overnight events feels well walking around room no cigs Current Medications Generic Name Dose Route Start Last Admin Trade Name Freq PRN Reason Stop Dose Admin Al Hydroxide/Mg Hydroxide 30 ml 06/17/16 19:28 Mylanta Oral Suspension - PO Q6H PRN DYSPEPSIA Aspirin 81 mg 06/15/16 10:00 06/20/16 09:17 Ecotrin - PO 81 mg DAILY NIKOLAS Administration Carvedilol 12.5 mg 06/15/16 10:00 06/20/16 09:19 Coreg - PO 12.5 mg BID NIKOLAS Administration Docusate Sodium 100 mg 06/15/16 07:36 Colace - PO DAILY PRN CONSTIPATION Enoxaparin Sodium 40 mg 06/18/16 10:00 06/20/16 09:17 Lovenox - SQ 40 mg DAILY NIKOLAS Administration Furosemide 80 mg 06/20/16 16:00 Lasix Injection - IVPUSH BID@0600,1400 NIKOLAS Milrinone Lactate/Dextrose 100 mls @ 3.683 mls/hr 06/19/16 16:00 06/19/16 16:42 Milrinone 20mg/100ml Ivpb - IVPB 3.683 mls/hr TITR NIKOLAS Administration Protocol 0.25 MCG/KG/MIN Magnesium Oxide 400 mg 06/15/16 10:00 06/20/16 09:17 Mag-Ox - PO 400 mg DAILY NIKOLAS Administration Midodrine 5 mg 06/15/16 10:00 06/20/16 09:17 Proamatine - PO 5 mg TID-MID NIKOLAS Administration Potassium Chloride 40 meq 06/15/16 10:00 06/20/16 09:16 K-Dur - PO 40 meq DAILY NIKOLAS Administration Zolpidem Tartrate 5 mg 06/19/16 16:16 06/19/16 22:19 Ambien - PO 5 mg HS PRN Administration INSOMNIA Vital Signs Temp 98.1 F 06/20/16 07:09 Pulse 80 06/20/16 09:49 Resp 20 06/20/16 07:12 BP 109/50 06/20/16 09:49 Pulse Ox 97 06/20/16 07:12 Intake & Output 06/19/16 06/19/16 06/20/16 11:59 23:59 11:59 Intake Total 360 310 36 Output Total 250 Balance 110 310 36 Weight 108 lb 4 oz 110 lb Intake: IV 10 10 36 Milrinone 20Mg/100Ml Ivpb 36 - 100 ml @ 0.25 MCG/KG/ MIN 3.683 mls/hr IVPB TITR NIKOLAS Rx#:[id number] sl1 10 10 IVPB 350 Oral 300 Output: Urine 250 Void 250 Other: Voiding Method Bedside Commode Bedside Commode Bedside Commode Bowel Movement Yes Weight Measurement Method Standing Scale Standing Scale Constitutional: Yes: No Distress, Calm Eyes: No: Sclera Icterus HENT: No: Nasal Congestion Cardiovascular: Yes: ++JVD, Regular Rate and Rhythm, S1, S2, Other (PMI non diplaced). 2/6 murmur at apex. Respiratory: Yes: CTA Bilaterally. No: Accessory Muscle Use, Rales, Wheezes Gastrointestinal: Yes: Normal Bowel Sounds, Soft. No: Tenderness Musculoskeletal: Yes: Other (No kyphosis) Extremities: No: Cold Edema: No le e/c/c Integumentary: No: Jaundice diaphoresis Neurological: Yes: Alert, Oriented (x3) Psychiatric: No: Agitated pos dp pt Laboratory Last Values WBC 7.1 K/mm3 (4.0-10.0) D 06/20/16 05:35 RBC 3.28 M/mm3 (3.60-5.2) L 06/20/16 05:35 Hgb 9.3 GM/dL (10.7-15.3) L 06/20/16 05:35 Hct 28.1 % (32.4-45.2) L 06/20/16 05:35 MCV 85.5 fl (80-96) 06/20/16 05:35 MCHC 33.0 g/dl (32.0-36.0) 06/20/16 05:35 RDW 15.1 % (11.6-15.6) 06/20/16 05:35 Plt Count 201 K/MM3 (134-434) 06/20/16 05:35 MPV 9.0 fl (7.5-11.1) 06/20/16 05:35 Neutrophils % 81.3 % (42.8-82.8) 06/20/16 05:35 Lymphocytes % 7.1 % (8-40) L D 06/20/16 05:35 Monocytes % 10.3 % (3.8-10.2) H 06/20/16 05:35 Eosinophils % 0.7 % (0-4.5) 06/20/16 05:35 Basophils % 0.6 % (0-2.0) 06/20/16 05:35 Sodium 128 mmol/L (136-145) L 06/20/16 05:35 Potassium 4.6 mmol/L (3.5-5.1) 06/20/16 05:35 Chloride 87 mmol/L (98-107) L 06/20/16 05:35 Carbon Dioxide 27 mmol/L (21-32) 06/20/16 05:35 Anion Gap 14 (8-16) 06/20/16 05:35 BUN 31 mg/dL (7-18) H 06/20/16 05:35 Creatinine 1.1 mg/dL (0.55-1.02) H 06/20/16 05:35 Creat Clearance w eGFR 48.04 (>60) 06/20/16 05:35 Random Glucose 104 mg/dL (74-106) 06/20/16 05:35 Calcium 8.3 mg/dL (8.5-10.1) L 06/20/16 05:35 Magnesium 1.9 mg/dL (1.8-2.4) 06/20/16 05:35 Total Bilirubin 0.8 mg/dL (0.2-1.0) 06/20/16 05:35 AST 35 U/L (15-37) D 06/20/16 05:35 ALT 128 U/L (12-78) H 06/20/16 05:35 Alkaline Phosphatase 169 U/L (45-117) H 06/20/16 05:35 B-Natriuretic Peptide 12510.20 pg/ml (5-450) H 06/14/16 13:20 Total Protein 5.3 g/dl (6.4-8.2) L 06/20/16 05:35 Albumin 2.9 g/dl (3.4-5.0) L 06/20/16 05:35 Urine Color Yellow 06/14/16 12:50 Urine Appearance Cloudy 06/14/16 12:50 Urine pH 6.0 (5.0-8.0) 06/14/16 12:50 Ur Specific [place] 1.012 (1.001-1.035) 06/14/16 12:50 Urine Protein Negative (NEGATIVE) 06/14/16 12:50 Urine Glucose (UA) Negative (NEGATIVE) 06/14/16 12:50 Urine Ketones Negative (NEGATIVE) 06/14/16 12:50 Urine Blood Negative (NEGATIVE) 06/14/16 12:50 Urine Nitrite Negative (NEGATIVE) 06/14/16 12:50 Urine Bilirubin Negative (NEGATIVE) 06/14/16 12:50 Urine Urobilinogen Negative E.U./dl (0.2-1.0) 06/14/16 12:50 Ur Leukocyte Esterase 3+ (NEGATIVE) H 06/14/16 12:50 Urine RBC 5 /hpf (0-3) 06/14/16 12:50 Urine WBC 1177 /hpf (3-5) 06/14/16 12:50 Ur Epithelial Cells Rare /hpf (FEW) 06/14/16 12:50 Urine Bacteria Rare /hpf (NONE SEEN) 06/14/16 12:50 tele: sr, occ pvcs Echo 05/2016: Mod LV dilation, severely impaired lv fn (global), EF 20% - biplane EF 24%. nl rv. severe LAE. mild-mod mr/tr. rvsp at least 38 mmHg. IVC with respirophasic variation. Echo 01/2016 [facility]: Mod LV dil. EF 25-30%, NL RV. mild-mod MR. Mod TR. mild phtn. Echo 12/14 ([facility]): mod LVE; severe decr EF global; dd1; nl RV; normal PV syst flow; mild L/JAQUELINE; mild-mod MR/TR; mild pHTN (48); small peric eff LHC 2001 ([facility]): normal cor.s; mild, diffuse LV hypo (EF 54%); mild-mod LVH; (done for evaluation of cardimyopathy or pericardial dz) MIBI 2010 (per): dil LV with mod global HK (40%); fixed infer/inferoapical defect; no isch a/p: 76 yo with h/o nonisch CMP, VT--s/p ICD, SOUMYA, breast Ca--mastectomy, s/p Carloz, uterine CA s/p chemo presents with hyponatremia. NICM, - acute exacerbation in setting of leaving AMA last week and subsequent non- adherence to medications - Concern for superimposed RV failure on last admit. - Hepatic congestion continues to improve (from LFT's on last admit). - recent home dry weight 101-103. - treating with lasix 80 mg IV BID. - 06/17: wt down 109 to 108, now stalled at 108 again today; bun/creat stable, Na trending down--she remains vol overloaded clinically with marked incr JVP pressure --> incr lasix 80 iv bid to 80 iv tid today--reassess labs and wt in am - 06/18: still volume up. con't lasix TID dosing for now. aggressive potassium repletion. - 06/19: cr up and na down today but still with JVD and wt not back to baseline. Ideally would try iv lasix with milrinone to see if more vol can come off but pt adamant about going home today and thus would have to be AMA again. If this is case would give torsemide 50 mg qd. 06/20: pt decided not to leave AMA so now started on milrinone with iv lasix. Cont same. Monitor daily wts and chemistry. Cont tele. - low bp (intolerant of even low dose lisin 2.5mg with presyncope/syncope) will not tolerate Entresto. con't coreg. -QRS 120msec, low likelihood for clinical response to [employer] upgrade per my d/w EP- -will offer to pt if cannot control her chf with appropriate meds (i.e. once she is complying) -do not recommend pt go back home without services as she has repeatedly demonstrated inability to correctly comply with meds and home wt monitoring VT s/p ICD - Recent office check normal. Con't routine outpatient monitoring. - tele stable here--occ runs of NSVT as per her usual SOUMYA - patient declines treatment
[2016-06-20] MEDS: MILRINONE 20MG/100ML IVPB - 100 ML IVPB SCH ×2 (14:22→16:04)
--- NOTE | 2016-06-20 15:34 | PN ---
Physical Exam: SUBJECTIVE: Patient seen and examined oob to chair. Is not sleeping well at night so feels tired during the day. OBJECTIVE: Vital Signs Period Temp Pulse Resp BP Sys/Drake Pulse Ox Last 24 Hr 97.3 F-98.1 F 63-94 20-20 107-134/50-79 97-97 GENERAL: The patient is awake, alert, and fully oriented, in no acute distress. HEAD: Normal with no signs of trauma. EYES: PERRL, extraocular movements intact, sclera anicteric, conjunctiva clear. No ptosis. LUNGS: Breath sounds CTA HEART: Regular rate and rhythm, S1, S2 without murmur, rub or gallop. ABDOMEN: Soft, nontender, nondistended, normoactive bowel sounds, no guarding, no rebound EXTREMITIES: 2+ pulses, warm, well-perfused, no edema. NEUROLOGICAL: Cranial nerves II through XII grossly intact. Normal speech, steady gait. PSYCH: Normal mood, normal affect. SKIN: Warm, dry, normal turgor, no rashes or lesions noted Laboratory Results - last 24 hr 06/19/16 06/20/16 06/20/16 14:10 05:35 05:35 WBC 7.1 D RBC 3.28 L Hgb 9.3 L Hct 28.1 L MCV 85.5 MCHC 33.0 RDW 15.1 Plt Count 201 MPV 9.0 Neutrophils % 81.3 Lymphocytes % 7.1 L D Monocytes % 10.3 H Eosinophils % 0.7 Basophils % 0.6 Sodium 128 L Potassium 4.7 4.6 Chloride 87 L Carbon Dioxide 27 Anion Gap 14 BUN 31 H Creatinine 1.1 H Creat Clearance w eGFR 48.04 Random Glucose 104 Calcium 8.3 L Magnesium 1.9 Total Bilirubin 0.8 AST 35 D ALT 128 H Alkaline Phosphatase 169 H Total Protein 5.3 L Albumin 2.9 L Active Medications Generic Name Dose Route Start Last Admin Trade Name Freq PRN Reason Stop Dose Admin Al Hydroxide/Mg Hydroxide 30 ml 06/17/16 19:28 Mylanta Oral Suspension - PO Q6H PRN DYSPEPSIA Aspirin 81 mg 06/15/16 10:00 06/20/16 09:17 Ecotrin - PO 81 mg DAILY NIKOLAS Administration Carvedilol 12.5 mg 06/15/16 10:00 06/20/16 09:19 Coreg - PO 12.5 mg BID NIKOLAS Administration Docusate Sodium 100 mg 06/15/16 07:36 Colace - PO DAILY PRN CONSTIPATION Enoxaparin Sodium 40 mg 06/18/16 10:00 06/20/16 09:17 Lovenox - SQ 40 mg DAILY NIKOLAS Administration Furosemide 80 mg 06/20/16 16:00 Lasix Injection - IVPUSH BID@0600,1400 NIKOLAS Milrinone Lactate/Dextrose 100 mls @ 3.683 mls/hr 06/19/16 16:00 06/20/16 14:22 Milrinone 20mg/100ml Ivpb - IVPB 3.683 mls/hr TITR NIKOLAS Administration Protocol 0.25 MCG/KG/MIN Magnesium Oxide 400 mg 06/15/16 10:00 06/20/16 09:17 Mag-Ox - PO 400 mg DAILY NIKOLAS Administration Midodrine 5 mg 06/15/16 10:00 06/20/16 09:17 Proamatine - PO 5 mg TID-MID NIKOLAS Administration Potassium Chloride 40 meq 06/15/16 10:00 06/20/16 09:16 K-Dur - PO 40 meq DAILY NIKOLAS Administration Zolpidem Tartrate 5 mg 06/19/16 16:16 06/19/16 22:19 Ambien - PO 5 mg HS PRN Administration INSOMNIA Imaging Echo 05/2016: Mod LV dilation, severely impaired lv fn (global), EF 20% - biplane EF 24%. nl rv. severe LAE. mild-mod mr/tr. rvsp at least 38 mmHg. IVC with respirophasic variation. LHC 2001 ([facility]): normal cor.s; mild, diffuse LV hypo (EF 54%); mild-mod LVH MIBI 2010 (per): dil LV with mod global HK (40%); fixed infer/inferoapical defect; no ischemia ASSESSMENT/PLAN 76 year-old female with a significant PMH of HTN, NICM, systolic HF s/p PPM/AICD , breast cancer s/p mastectomy, uterine cancer s/p chemo, and hyponatremia. Admitted for systolic HF exacerbation, now on milrinone. Acute on chronic systolic heart failure --lower extremity edema improved, lungs clear but ++JVD; despite aggressive diuresis down 1kg since admission and still ~5 pounds over dry weight --continue milrinone and Lasix IV 80mg BID Hypertension --BP well-controlled --continue Coreg Orthostatic hypotension --continue midodrine Transaminitis --AST/ALT mildly elevated Hypokalemia --K4.6 today --Kdur 40meq daily plus PRN --frequent K checks Hyponatremia, diuretic induced --Na 128 holding F/E/N Fluids: PO intake adequate Electrolytes: replete as indicated Nutrition: low sodium PT evaluation: ambulatory >100 feet DVT prophylaxis: lovenox, oob, ambulation Disposition: Continues to require inpatient hospitalization. Full code. Visit type - Emergency Visit Emergency Visit: Yes ED Registration Date: 06/14/16 Care time: The patient presented to the Emergency Department on the above date and was hospitalized for further evaluation of their emergent condition. - New Patient This patient is new to me today: No - Critical Care Critical Care patient: No - Discharge Referral Referred to [facility] Med [facility] No
[2016-06-20] MEDS: FUROSEMIDE 40 MG/4 ML INJECTABLE VIAL IVPUSH SCH (16:07)
[2016-06-20] MEDS: ZOLPIDEM TARTRATE 5 MG TABLET PO PRN (21:51)
[2016-06-20] MEDS ORDERED: ZOLPIDEM TARTRATE 5 MG TABLET PO ONE (23:53)
[2016-06-21] MEDS: FUROSEMIDE 40 MG/4 ML INJECTABLE VIAL IVPUSH SCH ×2 (05:56→13:55)
[2016-06-21 06:42] LABS: BASOPHIL 0.7 % (0-2.0); MCH 28.1 pg (25.7-33.7); MCHC 32.7 g/dl (32.0-36.0); MEAN CELL VOLUME 85.9 fl (80-96); MEAN PLT VOLUME 8.8 fl (7.5-11.1); NEUTROPHILS 75.8 % (42.8-82.8); PLATELET COUNT 235 K/MM3 (134-434); RDW 14.9 % (11.6-15.6); WHITE BLOOD COUNT 6.8 K/mm3 (4.0-10.0)
[2016-06-21 06:47] LABS: ALBUMIN 2.8 g/dl (3.4-5.0); ANION GAP 10 (8-16); CALCIUM 8.1 mg/dL (8.5-10.1); CO2 29 mmol/L (21-32); CREATININE 0.9 mg/dL (0.55-1.02); GLUCOSE,RANDOM 105 mg/dL (74-106); MAGNESIUM 1.8 mg/dL (1.8-2.4); PHOSPHOROUS 2.4 mg/dL (2.5-4.9); SGOT/AST 24 U/L (15-37); SGPT/ALT 103 U/L (12-78)
[2016-06-21] MEDS: MILRINONE 20MG/100ML IVPB - 100 ML IVPB SCH ×2 (06:47→16:34)
[2016-06-21 06:50] LABS: ALK PHOS 157 U/L (45-117); BILIRUBIN,TOTAL 0.6 mg/dL (0.2-1.0); TOT PROT 5.4 g/dl (6.4-8.2)
--- NOTE | 2016-06-21 07:43 | PN ---
[id number] 4d Weight 49.2kg (50.8kg on admission). Vital Signs Period Temp Pulse Resp BP Sys/Drake Pulse Ox Last 24 Hr 97.4 F-98 F 74-94 20-20 109-120/44-67 95 GENERAL: The patient is awake, alert, and fully oriented, in no acute distress. HEAD: Normal with no signs of trauma. EYES: PERRL, extraocular movements intact, sclera anicteric, conjunctiva clear. No ptosis. ENT: Ears normal, nares patent, oropharynx clear without exudates, moist mucous membranes. NECK: Trachea midline, full range of motion, supple. LUNGS: Breath sounds equal, clear to auscultation bilaterally, no wheezes, no crackles, no accessory muscle use. HEART: Irregular rhythm, S1, S2 without murmur, rub or gallop. ABDOMEN: Soft, nontender, nondistended, normoactive bowel sounds, no guarding, no rebound, no hepatosplenomegaly, no masses. EXTREMITIES: 2+ pulses, warm, well-perfused, no edema. NEUROLOGICAL: Cranial nerves II through XII grossly intact. Normal speech, gait not observed. PSYCH: Normal mood, normal affect. SKIN: Warm, dry, normal turgor, no rashes or lesions noted Laboratory Results - last 24 hr 06/20/16 06/20/16 06/21/16 05:35 05:35 05:35 WBC 7.1 D RBC 3.28 L Hgb 9.3 L Hct 28.1 L MCV 85.5 MCHC 33.0 RDW 15.1 Plt Count 201 MPV 9.0 Neutrophils % 81.3 Lymphocytes % 7.1 L D Monocytes % 10.3 H Eosinophils % 0.7 Basophils % 0.6 Sodium 128 L 130 L Potassium 4.6 4.3 Chloride 87 L 91 L Carbon Dioxide 27 29 Anion Gap 14 10 BUN 31 H 24 H D Creatinine 1.1 H 0.9 Creat Clearance w eGFR 48.04 > 60 Random Glucose 104 105 Calcium 8.3 L 8.1 L Phosphorus 2.4 L D Magnesium 1.9 1.8 Total Bilirubin 0.8 0.6 D AST 35 D 24 D ALT 128 H 103 H Alkaline Phosphatase 169 H 157 H Total Protein 5.3 L 5.4 L Albumin 2.9 L 2.8 L 06/21/16 05:35 WBC 6.8 RBC 3.21 L Hgb 9.0 L Hct 27.5 L MCV 85.9 MCHC 32.7 RDW 14.9 Plt Count 235 MPV 8.8 Neutrophils % 75.8 Lymphocytes % 11.3 D Monocytes % 10.2 Eosinophils % 2.0 D Basophils % 0.7 Sodium Potassium Chloride Carbon Dioxide Anion Gap BUN Creatinine Creat Clearance w eGFR Random Glucose Calcium Phosphorus Magnesium Total Bilirubin AST ALT Alkaline Phosphatase Total Protein Albumin Active Medications Generic Name Dose Route Start Last Admin Trade Name Wilfridoq PRN Reason Stop Dose Admin Al Hydroxide/Mg Hydroxide 30 ml 06/17/16 19:28 Mylanta Oral Suspension - PO Q6H PRN DYSPEPSIA Aspirin 81 mg 06/15/16 10:00 06/20/16 09:17 Ecotrin - PO 81 mg DAILY NIKOLAS Administration Carvedilol 12.5 mg 06/15/16 10:00 06/20/16 21:51 Coreg - PO 12.5 mg BID NIKOLAS Administration Docusate Sodium 100 mg 06/15/16 07:36 Colace - PO DAILY PRN CONSTIPATION Enoxaparin Sodium 40 mg 06/18/16 10:00 06/20/16 09:17 Lovenox - SQ 40 mg DAILY NIKOLAS Administration Furosemide 80 mg 06/20/16 16:00 06/21/16 05:56 Lasix Injection - IVPUSH 80 mg BID@0600,1400 NIKOLAS Administration Milrinone Lactate/Dextrose 100 mls @ 3.683 mls/hr 06/19/16 16:00 06/21/16 06:47 Milrinone 20mg/100ml Ivpb - IVPB 3.683 mls/hr TITR NIKOLAS Administration Protocol 0.25 MCG/KG/MIN Magnesium Oxide 400 mg 06/15/16 10:00 06/20/16 09:17 Mag-Ox - PO 400 mg DAILY NIKOLAS Administration Midodrine 5 mg 06/15/16 10:00 06/20/16 17:52 Proamatine - PO 5 mg TID-MID NIKOLAS Administration Potassium Chloride 40 meq 06/15/16 10:00 06/20/16 09:16 K-Dur - PO 40 meq DAILY NIKOLAS Administration Zolpidem Tartrate 5 mg 06/19/16 16:16 06/20/16 21:51 Ambien - PO 5 mg HS PRN Administration INSOMNIA Imaging Echo 05/2016: Mod LV dilation, severely impaired lv fn (global), EF 20% - biplane EF 24%. nl rv. severe LAE. mild-mod mr/tr. rvsp at least 38 mmHg. IVC with respirophasic variation. LHC 2001 ([facility]): normal cor.s; mild, diffuse LV hypo (EF 54%); mild-mod LVH MIBI 2010 (per): dil LV with mod global HK (40%); fixed infer/inferoapical defect; no ischemia ASSESSMENT/PLAN: 76 year-old female with a significant PMH of HTN, NICM, systolic HF s/p PPM/AICD, breast cancer s/p mastectomy, uterine cancer s/p chemo , and hyponatremia. Admitted for systolic HF exacerbation, now on milrinone and aggressive diuresis. 1. Acute on chronic systolic heart failure -Lower extremity edema improved, lungs clear but still with JVD -Continue milrinone and Lasix IV 80mg BID 2. Hypertension -BP well-controlled -Continue Coreg 3. Orthostatic hypotension -Continue midodrine 4. Transaminitis -AST/ALT mildly elevated, stable 5. Hypokalemia -K+ 4.3 today -Continue KDur 40mEq daily 6. Hypervolemic hyponatremia -Na improving, 130 today 7. UTI -Culture sent -Start Keflex (has received Ceftriaxone in past without reaction) 8. F/E/N -Fluids: PO intake adequate -Electrolytes: replete as indicated -Nutrition: low sodium diet PT evaluation: ambulatory >100 feet DVT prophylaxis: lovenox, OOB, ambulation Disposition: Continues to require inpatient hospitalization. Requests made for home PT, OT (patient has difficulty opening medication bottles), and VNS for weights and medication compliance. FULL CODE. Visit type - Emergency Visit Emergency Visit: Yes ED Registration Date: 06/14/16 Care time: The patient presented to the Emergency Department on the above date and was hospitalized for further evaluation of their emergent condition. - New Patient This patient is new to me today: Yes Date on this admission: 06/21/16 - Critical Care Critical Care patient: No
[2016-06-21] MEDS ORDERED: PT OWN MED DRAWER 7, Y5N ONE (09:06)
[2016-06-21] MEDS: MAGNESIUM OXIDE 400 MG TABLET (FP) PO SCH (10:00)
[2016-06-21] MEDS: POTASSIUM CHLORIDE TABS 20 MEQ TABLET.ER (FP) PO SCH (10:00)
[2016-06-21] MEDS: ENOXAPARIN NA (PORCINE) 40 MG/0.4 ML DISP.SYRIN SQ SCH (10:00)
[2016-06-21] MEDS: CARVEDILOL 12.5 MG TABLET (FP) PO SCH ×2 (10:01→22:55)
[2016-06-21] MEDS: MIDODRINE HCL 5 MG TABLET PO SCH ×3 (10:01→17:25)
[2016-06-21] MEDS: ASPIRIN COATED 81 MG TABLET.EC PO SCH (10:01)
[2016-06-21 10:12] LABS: URINE APPEARANCE CLEAR; URINE BILIRUBIN NEGATIVE (NEGATIVE); URINE BLOOD NEGATIVE (NEGATIVE); URINE COLOR COLORLESS; URINE GLUCOSE (UA) NEGATIVE (NEGATIVE); URINE KETONE NEGATIVE (NEGATIVE); URINE NITRITE NEGATIVE (NEGATIVE); URINE PROTEIN NEGATIVE (NEGATIVE); URINE UROBILINOGEN NEGATIVE E.U./dl (0.2-1.0)
[2016-06-21 10:16] LABS: URINE LEUK ESTERASE 2+ (NEGATIVE)
[2016-06-21 10:17] LABS: URINE BACTERIA RARE /hpf (NONE SEEN); URINE MUCUS RARE; URINE RBC 1 /hpf (0-3); URINE WBC 36 /hpf (3-5)
[2016-06-21] MEDS ORDERED: KCL 10 MEQ IVPB 100 ML IVPB SCH (10:45)
--- NOTE | 2016-06-21 10:47 | PN ---
Progress Note (short form) - Note Progress Note: Chief Complaint: chf History of Present Illness: no le edema no cp, palpit, sob. no dizzy, no loc, no orthopnea no overnight events feels well walking around room no cigs Current Medications Generic Name Dose Route Start Last Admin Trade Name Freq PRN Reason Stop Dose Admin Al Hydroxide/Mg Hydroxide 30 ml 06/17/16 19:28 Mylanta Oral Suspension - PO Q6H PRN DYSPEPSIA Aspirin 81 mg 06/15/16 10:00 06/21/16 10:01 Ecotrin - PO 81 mg DAILY NIKOLAS Administration Carvedilol 12.5 mg 06/15/16 10:00 06/21/16 10:01 Coreg - PO 12.5 mg BID NIKOLAS Administration Docusate Sodium 100 mg 06/15/16 07:36 Colace - PO DAILY PRN CONSTIPATION Enoxaparin Sodium 40 mg 06/18/16 10:00 06/21/16 10:00 Lovenox - SQ 40 mg DAILY NIKOLAS Administration Furosemide 80 mg 06/20/16 16:00 06/21/16 05:56 Lasix Injection - IVPUSH 80 mg BID@0600,1400 N[facility] Administration Milrinone Lactate/Dextrose 100 mls @ 3.683 mls/hr 06/19/16 16:00 06/21/16 06:47 Milrinone 20mg/100ml Ivpb - IVPB 3.683 mls/hr TITR NIKOLAS Administration Protocol 0.25 MCG/KG/MIN Potassium Chloride 100 mls @ 100 mls/hr 06/21/16 10:45 Potassium Chloride 10 Meq Premix Ivpb - IVPB 06/21/16 13:44 Q60M NIKOLAS Magnesium Oxide 400 mg 06/15/16 10:00 06/21/16 10:00 Mag-Ox - PO 400 mg DAILY NIKOLAS Administration Midodrine 5 mg 06/15/16 10:00 06/21/16 10:01 Proamatine - PO 5 mg TID-MID NIKOLAS Administration Potassium Chloride 40 meq 06/15/16 10:00 06/21/16 10:00 K-Dur - PO 40 meq DAILY NIKOLAS Administration Zolpidem Tartrate 5 mg 06/19/16 16:16 06/20/16 21:51 Ambien - PO 5 mg HS PRN Administration INSOMNIA Vital Signs Temp 97.5 F L 06/21/16 06:00 Pulse 88 06/21/16 06:00 Resp 20 06/21/16 06:00 BP 120/47 06/21/16 06:00 Pulse Ox 95 06/20/16 21:00 Intake & Output 06/20/16 06/20/16 06/21/16 11:59 23:59 11:59 Intake Total 36 292 Balance 36 292 Weight 110 lb 108 lb 6 oz Intake: IV 36 42 Milrinone 20Mg/100Ml Ivpb 36 42 - 100 ml @ 0.25 MCG/KG/ MIN 3.683 mls/hr IVPB TITR NIKOLAS Rx#:[id number] Oral 250 Other: Voiding Method Bedside Commode Bedside Commode Weight Measurement Method Standing Scale Standing Scale Constitutional: Yes: No Distress, Calm Eyes: No: Sclera Icterus HENT: No: Nasal Congestion Cardiovascular: Yes: +JVD, Regular Rate and Rhythm, S1, S2, Other (PMI non diplaced). 2/6 murmur at apex. Respiratory: Yes: CTA Bilaterally. No: Accessory Muscle Use, Rales, Wheezes Gastrointestinal: Yes: Normal Bowel Sounds, Soft. No: Tenderness Musculoskeletal: Yes: Other (No kyphosis) Extremities: No: Cold Edema: No le e/c/c Integumentary: No: Jaundice diaphoresis Neurological: Yes: Alert, Oriented (x3) Psychiatric: No: Agitated pos dp pt Laboratory Last Values WBC 6.8 K/mm3 (4.0-10.0) 06/21/16 05:35 RBC 3.21 M/mm3 (3.60-5.2) L 06/21/16 05:35 Hgb 9.0 GM/dL (10.7-15.3) L 06/21/16 05:35 Hct 27.5 % (32.4-45.2) L 06/21/16 05:35 MCV 85.9 fl (80-96) 06/21/16 05:35 MCHC 32.7 g/dl (32.0-36.0) 06/21/16 05:35 RDW 14.9 % (11.6-15.6) 06/21/16 05:35 Plt Count 235 K/MM3 (134-434) 06/21/16 05:35 MPV 8.8 fl (7.5-11.1) 06/21/16 05:35 Neutrophils % 75.8 % (42.8-82.8) 06/21/16 05:35 Lymphocytes % 11.3 % (8-40) D 06/21/16 05:35 Monocytes % 10.2 % (3.8-10.2) 06/21/16 05:35 Eosinophils % 2.0 % (0-4.5) D 06/21/16 05:35 Basophils % 0.7 % (0-2.0) 06/21/16 05:35 Sodium 130 mmol/L (136-145) L 06/21/16 05:35 Potassium 4.3 mmol/L (3.5-5.1) 06/21/16 05:35 Chloride 91 mmol/L (98-107) L 06/21/16 05:35 Carbon Dioxide 29 mmol/L (21-32) 06/21/16 05:35 Anion Gap 10 (8-16) 06/21/16 05:35 BUN 24 mg/dL (7-18) H D 06/21/16 05:35 Creatinine 0.9 mg/dL (0.55-1.02) 06/21/16 05:35 Creat Clearance w eGFR > 60 (>60) 06/21/16 05:35 Random Glucose 105 mg/dL (74-106) 06/21/16 05:35 Calcium 8.1 mg/dL (8.5-10.1) L 06/21/16 05:35 Phosphorus 2.4 mg/dL (2.5-4.9) L D 06/21/16 05:35 Magnesium 1.8 mg/dL (1.8-2.4) 06/21/16 05:35 Total Bilirubin 0.6 mg/dL (0.2-1.0) D 06/21/16 05:35 AST 24 U/L (15-37) D 06/21/16 05:35 ALT 103 U/L (12-78) H 06/21/16 05:35 Alkaline Phosphatase 157 U/L (45-117) H 06/21/16 05:35 B-Natriuretic Peptide 35701.20 pg/ml (5-450) H 06/14/16 13:20 Total Protein 5.4 g/dl (6.4-8.2) L 06/21/16 05:35 Albumin 2.8 g/dl (3.4-5.0) L 06/21/16 05:35 Urine Color Colorless 06/21/16 09:25 Urine Appearance Clear 06/21/16 09:25 Urine pH 7.0 (5.0-8.0) 06/21/16 09:25 Ur Specific [place] 1.003 (1.001-1.035) 06/21/16 09:25 Urine Protein Negative (NEGATIVE) 06/21/16 09:25 Urine Glucose (UA) Negative (NEGATIVE) 06/21/16 09:25 Urine Ketones Negative (NEGATIVE) 06/21/16 09:25 Urine Blood Negative (NEGATIVE) 06/21/16 09:25 Urine Nitrite Negative (NEGATIVE) 06/21/16 09:25 Urine Bilirubin Negative (NEGATIVE) 06/21/16 09:25 Urine Urobilinogen Negative E.U./dl (0.2-1.0) 06/21/16 09:25 Ur Leukocyte Esterase 2+ (NEGATIVE) H 06/21/16 09:25 Urine RBC 1 /hpf (0-3) 06/21/16 09:25 Urine WBC 36 /hpf (3-5) 06/21/16 09:25 Ur Epithelial Cells Rare /hpf (FEW) 06/14/16 12:50 Urine Bacteria Rare /hpf (NONE SEEN) 06/21/16 09:25 Urine Mucus Rare 06/21/16 09:25 tele: sr, occ pvcs, brief episodes of NSVT Echo 05/2016: Mod LV dilation, severely impaired lv fn (global), EF 20% - biplane EF 24%. nl rv. severe LAE. mild-mod mr/tr. rvsp at least 38 mmHg. IVC with respirophasic variation. Echo 01/2016 [facility]: Mod LV dil. EF 25-30%, NL RV. mild-mod MR. Mod TR. mild phtn. Echo 12/14 ([facility]): mod LVE; severe decr EF global; dd1; nl RV; normal PV syst flow; mild L/JAQUELINE; mild-mod MR/TR; mild pHTN (48); small peric eff C 2001 ([facility]): normal cor.s; mild, diffuse LV hypo (EF 54%); mild-mod LVH; (done for evaluation of cardimyopathy or pericardial dz) MIBI 2010 (per): dil LV with mod global HK (40%); fixed infer/inferoapical defect; no isch a/p: 76 yo with h/o nonisch CMP, [place]--s/p ICD, SOUMYA, breast Ca--mastectomy, s/p Carloz, uterine CA s/p chemo presents with hyponatremia. NICM, - acute exacerbation in setting of leaving AMA last week and subsequent non- adherence to medications - Concern for superimposed RV failure on last admit. - Hepatic congestion continues to improve (from LFT's on last admit). - recent home dry weight 101-103. - treating with lasix 80 mg IV BID. - 06/17: wt down 109 to 108, now stalled at 108 again today; bun/creat stable, Na trending down--she remains vol overloaded clinically with marked incr JVP pressure --> incr lasix 80 iv bid to 80 iv tid today--reassess labs and wt in am - 06/18: still volume up. con't lasix TID dosing for now. aggressive potassium repletion. - 06/19: cr up and na down today but still with JVD and wt not back to baseline. Ideally would try iv lasix with milrinone to see if more vol can come off but pt adamant about going home today and thus would have to be AMA again. If this is case would give torsemide 50 mg qd. 06/20: pt decided not to leave AMA so now started on milrinone with iv lasix. Cont same. 06/21: cr, Na, lfts improved and wt down slightly today. cont same milrinone and lasix iv. Monitor daily wts, chem - low bp (intolerant of even low dose lisin 2.5mg with presyncope/syncope) will not tolerate Entresto. con't coreg. -QRS 120msec, low likelihood for clinical response to ADMISSION LIAISON upgrade per my d/w EP- -will offer to pt if cannot control her chf with appropriate meds (i.e. once she is complying) -do not recommend pt go back home without services as she has repeatedly demonstrated inability to correctly comply with meds and home wt monitoring [place] s/p ICD - Recent office check normal. Con't routine outpatient monitoring. - tele stable here--occ runs of NSVT as per her usual SOUMYA - patient declines treatment
[2016-06-21] MEDS ORDERED: NITROFURANTOIN MACROCRYSTAL 50 MG CAPSULE (FP) PO SCH (12:45)
[2016-06-21] MEDS: CEPHALEXIN MONOHYDRATE 500 MG CAPSULE (UD) PO SCH ×2 (17:24→22:55)
[2016-06-21] MEDS: BENZOCAINE/MENTH/CETYLPYRD CL 1 EACH LOZENGE MM PRN ×2 (17:25→22:56)
[2016-06-21] MEDS: ZOLPIDEM TARTRATE 5 MG TABLET PO PRN (22:55)
[2016-06-22] MEDS: CEPHALEXIN MONOHYDRATE 500 MG CAPSULE (UD) PO SCH ×2 (01:29→06:40)
[2016-06-22] MEDS: FUROSEMIDE 40 MG/4 ML INJECTABLE VIAL IVPUSH SCH ×2 (06:40→14:21)
[2016-06-22 08:04] LABS: BASOPHIL 0.7 % (0-2.0); EOSINOPHIL 1.4 % (0-4.5); MCH 28.3 pg (25.7-33.7); MEAN CELL VOLUME 85.9 fl (80-96); MEAN PLT VOLUME 8.2 fl (7.5-11.1); NEUTROPHILS 80.2 % (42.8-82.8); PLATELET COUNT 211 K/MM3 (134-434); RDW 14.9 % (11.6-15.6)
[2016-06-22 08:28] LABS: ALBUMIN 2.6 g/dl (3.4-5.0); CALCIUM 7.6 mg/dL (8.5-10.1)
[2016-06-22 08:32] LABS: BILIRUBIN,TOTAL 0.6 mg/dL (0.2-1.0)
[2016-06-22] MEDS ORDERED: PT OWN MED DRAWER 7, Y5N ONE ×3 (09:12→16:52)
--- NOTE | 2016-06-22 09:25 | PN ---
Progress Note, Physician Chief Complaint: chf History of Present Illness: not walking outside of room here; no sob or orthopnea in the room no cp, no leg swelling denies med confusion/noncompliance after last hosp discharge and becomes agitated at the suggestion that her dtr stated otherwise no cigs - Current Medication List Current Medications: Active Medications Al Hydroxide/Mg Hydroxide (Mylanta Oral Suspension -) 30 ml PO Q6H PRN PRN Reason: DYSPEPSIA Aspirin (Ecotrin -) 81 mg PO DAILY [facility] Last Admin: 06/21/16 10:01 Dose: 81 mg Benzocaine/Menthol (Cepacol Lozenge -) 1 each MM PRN PRN PRN Reason: SORE THROAT Last Admin: 06/21/16 22:56 Dose: 1 each Carvedilol (Coreg -) 12.5 mg PO BID [facility] Last Admin: 06/21/16 22:55 Dose: 12.5 mg Cephalexin HCl (Keflex -) 500 mg PO Q6HPO [facility] Last Admin: 06/22/16 06:40 Dose: 500 mg Docusate Sodium (Colace -) 100 mg PO DAILY PRN PRN Reason: CONSTIPATION Enoxaparin Sodium (Lovenox -) 40 mg SQ DAILY [facility] Last Admin: 06/21/16 10:00 Dose: 40 mg Furosemide (Lasix Injection -) 80 mg IVPUSH BID@0600,1400 [facility] Last Admin: 06/22/16 06:40 Dose: 80 mg Milrinone Lactate/Dextrose (Milrinone 20mg/100ml Ivpb -) 100 mls @ 3.683 mls/ hr IVPB TITR NIKOLAS; 0.25 MCG/KG/MIN PRN Reason: Protocol Last Titration: 06/22/16 07:05 Dose: 0.25 mcg/kg/min Magnesium Oxide (Mag-Ox -) 400 mg PO DAILY [facility] Last Admin: 06/21/16 10:00 Dose: 400 mg Midodrine (Proamatine -) 5 mg PO TID-MID [facility] Last Admin: 06/21/16 17:25 Dose: 5 mg Potassium Chloride (K-Dur -) 40 meq PO BID [facility] Zolpidem Tartrate (Ambien -) 5 mg PO HS PRN PRN Reason: INSOMNIA Last Admin: 06/21/16 22:55 Dose: 5 mg - Objective Vital Signs: Vital Signs Temperature 97.6 F 03/24/17 22:00 Pulse Rate 98 H 06/22/16 06:00 Respiratory Rate 20 06/22/16 06:00 Blood Pressure 131/63 06/22/16 06:00 O2 Sat by Pulse Oximetry (%) 92 L 06/21/16 21:00 Constitutional: Yes: No Distress, Calm Eyes: No: Sclera Icterus HENT: No: Nasal Congestion Cardiovascular: Yes: Regular Rate and Rhythm, S1, S2, Other (PMI non diplaced). No: JVD (seated (eating)), Gallop, Murmur Respiratory: Yes: CTA Bilaterally. No: Accessory Muscle Use, Rales, Wheezes Gastrointestinal: Yes: Normal Bowel Sounds, Soft. No: Tenderness Musculoskeletal: Yes: Other (No kyphosis) Extremities: No: Cold Edema: No Integumentary: No: Jaundice Neurological: Yes: Alert, Oriented (x3) Psychiatric: No: Agitated Labs: CBC, BMP 06/22/16 05:35 06/22/16 05:35 - ....Imaging EKG: Other (NSR, NSVT to 12b; ? PSVT) Assessment/Plan Echo 05/2016: Mod LV dilation, severely impaired lv fn (global), EF 20% - biplane EF 24%. nl rv. severe LAE. mild-mod mr/tr. rvsp at least 38 mmHg. IVC with respirophasic variation. Echo 01/2016 [facility]: Mod LV dil. EF 25-30%, NL RV. mild-mod MR. Mod TR. mild phtn. Echo 12/14 ([facility]): mod LVE; severe decr EF global; dd1; nl RV; normal PV syst flow; mild L/JAQUELINE; mild-mod MR/TR; mild pHTN (48); small peric eff LHC 2001 ([facility]): normal cor.s; mild, diffuse LV hypo (EF 54%); mild-mod LVH; (done for evaluation of cardimyopathy or pericardial dz) MIBI 2010 (per): dil LV with mod global HK (40%); fixed infer/inferoapical defect; no isch a/p: 76 yo with h/o nonisch CMP, [place]--s/p ICD, SOUMYA, breast Ca--mastectomy, s/p Carloz, uterine CA s/p chemo presents with hyponatremia. NICM, - acute exacerbation in setting of leaving AMA last week and subsequent non- adherence to medications - Concern for superimposed RV failure on last admit. - Hepatic congestion continues to improve (from LFT's on last admit). - recent home dry weight 101-103. - treating with lasix 80 mg IV BID. - 06/17: wt down 109 to 108, now stalled at 108 again today; bun/creat stable, Na trending down--she remains vol overloaded clinically with marked incr JVP pressure --> incr lasix 80 iv bid to 80 iv tid today--reassess labs and wt in am - 06/18: still volume up. con't lasix TID dosing for now. aggressive potassium repletion. - 06/19: cr up and na down today but still with JVD and wt not back to baseline. Ideally would try iv lasix with milrinone to see if more vol can come off but pt adamant about going home today and thus would have to be AMA again. If this is case would give torsemide 50 mg qd. 06/20: pt decided not to leave AMA so now started on milrinone with iv lasix. Cont same. 06/21: cr, Na, lfts improved and wt down slightly today. cont same milrinone and lasix iv. Monitor daily wts, chem -06/22: wt down 109-->104 (few lbs away from dry wt now) -bun, creat, Na all improving with effective inotrope-assisted diuresis (lasix 80 iv bid) -same meds today--if trending in right direction tomorrow will d/c milrinone and start po torsemide 50 qd on discharge -explained to pt that she may end up being dependent on home milrinone infusion , but best way to avoid that and future admits is to comply very closely with my med recs and wt/lab followup as outpt, and low Na diet - low bp (intolerant of even low dose lisin 2.5mg with presyncope/syncope) will not tolerate Entresto. con't coreg. -QRS 120msec, low likelihood for clinical response to [employer] OF [employer]ICAL [employer]INEER[employer] upgrade per my d/w EP- -will offer to pt if cannot control her chf with appropriate meds (i.e. once she is complying) -do not recommend pt go back home without services as she has repeatedly demonstrated inability to correctly comply with meds and home wt monitoring [place] s/p ICD - Recent office check normal. Con't routine outpatient monitoring. - tele stable here--occ runs of NSVT as per her usual - aggressive K (+/- Mag) repletion, as ordered SOUMYA - patient declines treatment
[2016-06-22] MEDS: MAGNESIUM OXIDE 400 MG TABLET (FP) PO SCH (09:33)
[2016-06-22] MEDS: ENOXAPARIN NA (PORCINE) 40 MG/0.4 ML DISP.SYRIN SQ SCH (09:33)
[2016-06-22] MEDS: MIDODRINE HCL 5 MG TABLET PO SCH ×3 (09:34→17:05)
[2016-06-22] MEDS: ASPIRIN COATED 81 MG TABLET.EC PO SCH (09:35)
[2016-06-22] MEDS: CARVEDILOL 12.5 MG TABLET (FP) PO SCH ×2 (09:35→21:37)
[2016-06-22] MEDS: BENZOCAINE/MENTH/CETYLPYRD CL 1 EACH LOZENGE MM PRN (09:38)
[2016-06-22] MEDS: ACETAMINOPHEN 325 MG TABLET (FP) PO PRN ×2 (11:46→21:44)
[2016-06-22] MEDS ORDERED: VANCOMYCIN 1 GRAM (PRE-DOCKED) 1,000 MG/250 ML BAG IVPB ONE (12:45)
--- NOTE | 2016-06-22 12:50 | PN ---
Physical Exam: SUBJECTIVE: Patient seen and examined. She has a persistent dry cough, causing throat pain. OBJECTIVE: T max 101.2 Vital Signs Period Temp Pulse Resp BP Sys/Drake Pulse Ox Last 24 Hr 97.6 F-101.2 F 78-104 18-20 108-135/44-65 92-98 PE General: mildly flushed Neuro: alert, awake, cn 2-12intact Heent: ++ jvd Pulm: CTAB CV: s1 s2 irregular rhythm Abd: s nt nd + bs Ext: +1 le edema, warm Laboratory Results - last 24 hr 06/22/16 06/22/16 05:35 05:35 WBC 5.0 RBC 3.08 L Hgb 8.7 L Hct 26.4 L MCV 85.9 MCHC 33.0 RDW 14.9 Plt Count 211 MPV 8.2 Neutrophils % 80.2 Lymphocytes % 4.6 L D Monocytes % 13.1 H Eosinophils % 1.4 Basophils % 0.7 Sodium 133 L Potassium 3.4 L D Chloride 89 L Carbon Dioxide 32 Anion Gap 12 BUN 23 H Creatinine 1.0 Creat Clearance w eGFR 53.62 Random Glucose 81 D Calcium 7.6 L Total Bilirubin 0.6 AST 21 ALT 78 D Alkaline Phosphatase 132 H Total Protein 5.0 L Albumin 2.6 L Active Medications Generic Name Dose Route Start Last Admin Trade Name Freq PRN Reason Stop Dose Admin Acetaminophen 325 mg 06/22/16 09:40 06/22/16 11:46 Tylenol - PO 325 mg Q6H PRN Administration FEVER OR PAIN Al Hydroxide/Mg Hydroxide 30 ml 06/17/16 19:28 Mylanta Oral Suspension - PO Q6H PRN DYSPEPSIA Aspirin 81 mg 06/15/16 10:00 06/22/16 09:35 Ecotrin - PO 81 mg DAILY [facility] Administration Benzocaine/Menthol 1 each 06/21/16 16:28 06/22/16 09:38 Cepacol Lozenge - MM 1 each PRN PRN Administration SORE THROAT Carvedilol 12.5 mg 06/15/16 10:00 06/22/16 09:35 Coreg - PO 12.5 mg BID NIKOLAS Administration Docusate Sodium 100 mg 06/15/16 07:36 Colace - PO DAILY PRN CONSTIPATION Enoxaparin Sodium 40 mg 06/18/16 10:00 06/22/16 09:33 Lovenox - SQ 40 mg DAILY [facility]AS Administration Furosemide 80 mg 06/20/16 16:00 06/22/16 06:40 Lasix Injection - IVPUSH 80 mg BID@0600,1400 N[facility]AS Administration Milrinone Lactate/Dextrose 100 mls @ 3.683 mls/hr 06/19/16 16:00 06/22/16 07:05 Milrinone 20mg/100ml Ivpb - IVPB 0.25 mcg/kg/min TITR NIKOLAS Titration Protocol 0.25 MCG/KG/MIN Magnesium Oxide 400 mg 06/15/16 10:00 06/22/16 09:33 Mag-Ox - PO 400 mg DAILY [facility]AS Administration Midodrine 5 mg 06/15/16 10:00 06/22/16 09:34 Proamatine - PO 5 mg TID-MID N[facility]AS Administration Potassium Chloride 40 meq 06/22/16 10:00 K-Dur - PO BID NIKOLAS Vancomycin HCl 1,000 mg 06/22/16 12:37 Vancomycin (Pre-Docked) IVPB 06/22/16 12:38 ONCE ONE Protocol Zolpidem Tartrate 5 mg 06/19/16 16:16 06/21/16 22:55 Ambien - PO 5 mg HS PRN Administration INSOMNIA Microbiology 06/21/16 09:30 Urine Culture - Preliminary Urine - Urine Clean Catch Group D Strep Or Entero Coccus Imaging - Echo 05/2016: Mod LV dilation, severely impaired lv fn (global), EF 20% - biplane EF 24%. nl rv. severe LAE. mild-mod mr/tr. rvsp at least 38 mmHg. IVC with respirophasic variation. - LHC 2001 ([facility]): normal cords mild, diffuse LV hypo (EF 54%); mild-mod LVH - MIBI 2010 (per): dil LV with mod global HK (40%); fixed infer/inferoapical defect; no ischemia Assessment: 76 year old female with pmhx of HTN, NICM, systolic HF s/p PPM/AICD , breast cancer s/p mastectomy, uterine cancer s/p chemo, and hyponatremia. Admitted for systolic HF exacerbation, now on milrinone and aggressive diuresis. Plan: 1. Fever, UTI - Urine cx with group D strep or entero - Stat CXR, Blood cultures - Will stop Keflex - Give x1 dose vanco - Await ur cx speciation 2. Acute on chronic systolic heart failure - Continue milrinone gtt - Lasix IV 80mg BID - Possible transition to Torsemide tomorrow - D/w cardiology 4. Hypertension - Continue Coreg 12.5 mg BID 5. Orthostatic hypotension - Continue midodrine 4. Transaminitis - AST/ALT mildly elevated d/t hepatic congestion 5. Hypokalemia - Replete - Continue KDur 40mEq daily - Check mag level in am 6. Hypervolemic hyponatremia - Na improving - BMP in am 7. Social: - Will need home services for PT, OT (patient has difficulty opening medication bottles), and VNS for weights and medication compliance. Visit type - Emergency Visit Emergency Visit: Yes ED Registration Date: 06/14/16 Care time: The patient presented to the Emergency Department on the above date and was hospitalized for further evaluation of their emergent condition. - New Patient This patient is new to me today: Yes Date on this admission: 06/22/16 - Critical Care Critical Care patient: No
[2016-06-22] MEDS: POTASSIUM CHLORIDE TABS 20 MEQ TABLET.ER (FP) PO SCH ×2 (13:49→21:37)
[2016-06-22] MEDS: MILRINONE 20MG/100ML IVPB - 100 ML IVPB SCH (21:36)
[2016-06-22] MEDS: ZOLPIDEM TARTRATE 5 MG TABLET PO PRN (21:37)
[2016-06-22] MEDS ORDERED: ZOLPIDEM TARTRATE 5 MG TABLET PO ONE (23:42)
[2016-06-23] MEDS: FUROSEMIDE 40 MG/4 ML INJECTABLE VIAL IVPUSH SCH ×3 (06:16→22:54)
[2016-06-23 08:01] LABS: ALBUMIN 2.7 g/dl (3.4-5.0); CALCIUM 7.8 mg/dL (8.5-10.1)
[2016-06-23 08:07] LABS: BILIRUBIN,TOTAL 0.5 mg/dL (0.2-1.0); MAGNESIUM 1.6 mg/dL (1.8-2.4); TOT PROT 5.2 g/dl (6.4-8.2)
[2016-06-23] MEDS ORDERED: MAGNESIUM SULF 50% (8.12 MEQ/2 ML-1 GM VIAL) IVPB ONE (08:45)
--- NOTE | 2016-06-23 09:00 | PN ---
Progress Note, Physician Chief Complaint: chf History of Present Illness: no sob, orthopnea; not ambulating; tired; coughing a lot still; no cp, palpit no cigs - Current Medication List Current Medications: Active Medications Acetaminophen (Tylenol -) 325 mg PO Q6H PRN PRN Reason: FEVER OR PAIN Last Admin: 06/22/16 21:44 Dose: 325 mg Al Hydroxide/Mg Hydroxide (Mylanta Oral Suspension -) 30 ml PO Q6H PRN PRN Reason: DYSPEPSIA Aspirin (Ecotrin -) 81 mg PO DAILY [facility] Last Admin: 06/22/16 09:35 Dose: 81 mg Benzocaine/Menthol (Cepacol Lozenge -) 1 each MM PRN PRN PRN Reason: SORE THROAT Last Admin: 06/22/16 09:38 Dose: 1 each Carvedilol (Coreg -) 12.5 mg PO BID [facility] Last Admin: 06/22/16 21:37 Dose: 12.5 mg Docusate Sodium (Colace -) 100 mg PO DAILY PRN PRN Reason: CONSTIPATION Enoxaparin Sodium (Lovenox -) 40 mg SQ DAILY [facility] Last Admin: 06/22/16 09:33 Dose: 40 mg Furosemide (Lasix Injection -) 80 mg IVPUSH BID@0600,1400 [facility] Last Admin: 06/23/16 06:16 Dose: 80 mg Milrinone Lactate/Dextrose (Milrinone 20mg/100ml Ivpb -) 100 mls @ 3.683 mls/ hr IVPB TITR NIKOLAS; 0.25 MCG/KG/MIN PRN Reason: Protocol Last Admin: 06/22/16 21:36 Dose: 3.683 mls/hr Magnesium Oxide (Mag-Ox -) 400 mg PO DAILY [facility] Last Admin: 06/22/16 09:33 Dose: 400 mg Midodrine (Proamatine -) 5 mg PO TID-MID [facility] Last Admin: 06/22/16 17:05 Dose: 5 mg Potassium Chloride (K-Dur -) 40 meq PO BID [facility] Last Admin: 06/22/16 21:37 Dose: 40 meq Zolpidem Tartrate (Ambien -) 5 mg PO HS PRN PRN Reason: INSOMNIA Last Admin: 06/22/16 21:37 Dose: 5 mg - Objective Vital Signs: Vital Signs Temperature 97.8 F 06/23/16 05:43 Pulse Rate 84 06/23/16 05:43 Respiratory Rate 20 06/23/16 05:43 Blood Pressure 110/53 06/23/16 05:43 O2 Sat by Pulse Oximetry (%) 94 L 06/22/16 21:00 Constitutional: Yes: No Distress, Calm Eyes: No: Sclera Icterus HENT: No: Nasal Congestion Cardiovascular: Yes: Regular Rate and Rhythm, JVD, S1, S2, Other (PMI non diplaced). No: Gallop, Murmur Respiratory: Yes: CTA Bilaterally. No: Accessory Muscle Use Gastrointestinal: Yes: Normal Bowel Sounds, Soft. No: Tenderness Musculoskeletal: Yes: Other (No kyphosis) Extremities: No: Cold Edema: No Integumentary: No: Jaundice Neurological: Yes: Alert, Oriented (x3) Psychiatric: No: Agitated Labs: CBC, BMP 06/22/16 05:35 06/23/16 05:35 - ....Imaging EKG: Other (tele: NSR; brief PSVT/PAT; 1 run ? NSVT) Assessment/Plan Echo 05/2016: Mod LV dilation, severely impaired lv fn (global), EF 20% - biplane EF 24%. nl rv. severe LAE. mild-mod mr/tr. rvsp at least 38 mmHg. IVC with respirophasic variation. Echo 01/2016 [facility]: Mod LV dil. EF 25-30%, NL RV. mild-mod MR. Mod TR. mild phtn. Echo 12/14 ([facility]): mod LVE; severe decr EF global; dd1; nl RV; normal PV syst flow; mild L/JAQUELINE; mild-mod MR/TR; mild pHTN (48); small peric eff C 2001 ([facility]): normal cor.s; mild, diffuse LV hypo (EF 54%); mild-mod LVH; (done for evaluation of cardimyopathy or pericardial dz) MIBI 2010 (per): dil LV with mod global HK (40%); fixed infer/inferoapical defect; no isch a/p: 76 yo with h/o nonisch CMP, [place]--s/p ICD, SOUMYA, breast Ca--mastectomy, s/p Carloz, uterine CA s/p chemo presents with hyponatremia. NICM, - acute exacerbation in setting of leaving AMA last week and subsequent non- adherence to medications - Concern for superimposed RV failure on last admit. - Hepatic congestion continues to improve (from LFT's on last admit). - recent home dry weight 101-103. - treating with lasix 80 mg IV BID. - 06/17: wt down 109 to 108, now stalled at 108 again today; bun/creat stable, Na trending down--she remains vol overloaded clinically with marked incr JVP pressure --> incr lasix 80 iv bid to 80 iv tid today--reassess labs and wt in am - 06/18: still volume up. con't lasix TID dosing for now. aggressive potassium repletion. - 06/19: cr up and na down today but still with JVD and wt not back to baseline. Ideally would try iv lasix with milrinone to see if more vol can come off but pt adamant about going home today and thus would have to be AMA again. If this is case would give torsemide 50 mg qd. -06/20: pt decided not to leave AMA so now started on milrinone with iv lasix. Cont same. -06/21: cr, Na, lfts improved and wt down slightly today. cont same milrinone and lasix iv. Monitor daily wts, chem -06/22: wt down 109-->104 (few lbs away from dry wt now) -06/23: wt unchanged (105), bun/creat, Na stable; JVD remains very elevated; -cont milrinone today, incr lasix to 80 iv tid today and will give one dose metolazone 2.5 with it; -hope for discharge tomorrow if wt close to 100-101 - cont carvedilol 12.5 bid, midodrine 5 TID to prevent recurrent orthostatic hypotension/presyncope/syncope - low bp (intolerant of even low dose lisin 2.5mg with presyncope/syncope) will not tolerate Entresto. -QRS 120msec, low likelihood for clinical response to TIMBER CUTTER upgrade per my d/w EP- -will offer to pt if cannot control her chf with appropriate meds (i.e. once she is complying) -do not recommend pt go back home without services as she has repeatedly demonstrated inability to correctly comply with meds and home wt monitoring [place] s/p ICD - Recent office check normal. Con't routine outpatient monitoring. - tele stable here--occ runs of NSVT as per her usual - aggressive K (+/- Mag) repletion, as ordered SOUMYA - patient declines treatment
[2016-06-23] MEDS: POTASSIUM CHLORIDE TABS 20 MEQ TABLET.ER (FP) PO SCH ×2 (09:06→22:53)
[2016-06-23] MEDS: ENOXAPARIN NA (PORCINE) 40 MG/0.4 ML DISP.SYRIN SQ SCH (09:06)
[2016-06-23] MEDS: CARVEDILOL 12.5 MG TABLET (FP) PO SCH ×2 (09:06→22:53)
[2016-06-23] MEDS: MAGNESIUM OXIDE 400 MG TABLET (FP) PO SCH (09:06)
[2016-06-23] MEDS: ASPIRIN COATED 81 MG TABLET.EC PO SCH (09:06)
[2016-06-23] MEDS ORDERED: PT OWN MED DRAWER 7, Y5N ONE ×3 (09:08→16:38)
[2016-06-23] MEDS: MIDODRINE HCL 5 MG TABLET PO SCH ×3 (09:08→17:34)
--- NOTE | 2016-06-23 09:49 | PN ---
Progress Note, Physician Chief Complaint: ID Asymptomatic Given KEFLEX 1 day then Vancomycin 1 dose - Current Medication List Current Medications: Active Medications Acetaminophen (Tylenol -) 325 mg PO Q6H PRN PRN Reason: FEVER OR PAIN Last Admin: 06/22/16 21:44 Dose: 325 mg Al Hydroxide/Mg Hydroxide (Mylanta Oral Suspension -) 30 ml PO Q6H PRN PRN Reason: DYSPEPSIA Aspirin (Ecotrin -) 81 mg PO DAILY [facility] Last Admin: 06/23/16 09:06 Dose: 81 mg Benzocaine/Menthol (Cepacol Lozenge -) 1 each MM PRN PRN PRN Reason: SORE THROAT Last Admin: 06/22/16 09:38 Dose: 1 each Carvedilol (Coreg -) 12.5 mg PO BID [facility] Last Admin: 06/23/16 09:06 Dose: 12.5 mg Docusate Sodium (Colace -) 100 mg PO DAILY PRN PRN Reason: CONSTIPATION Enoxaparin Sodium (Lovenox -) 40 mg SQ DAILY [facility] Last Admin: 06/23/16 09:06 Dose: 40 mg Furosemide (Lasix Injection -) 80 mg IVPUSH BID@0600,1400 [facility] Last Admin: 06/23/16 06:16 Dose: 80 mg Milrinone Lactate/Dextrose (Milrinone 20mg/100ml Ivpb -) 100 mls @ 3.683 mls/ hr IVPB TITR NIKOLAS; 0.25 MCG/KG/MIN PRN Reason: Protocol Last Admin: 06/22/16 21:36 Dose: 3.683 mls/hr Magnesium Oxide (Mag-Ox -) 400 mg PO DAILY [facility] Last Admin: 06/23/16 09:06 Dose: 400 mg Midodrine (Proamatine -) 5 mg PO TID-MID [facility] Last Admin: 06/23/16 09:08 Dose: 5 mg Potassium Chloride (K-Dur -) 40 meq PO BID [facility] Last Admin: 06/23/16 09:06 Dose: 40 meq Zolpidem Tartrate (Ambien -) 5 mg PO HS PRN PRN Reason: INSOMNIA Last Admin: 06/22/16 21:37 Dose: 5 mg - Objective Vital Signs: Vital Signs Temperature 97.8 F 06/23/16 05:43 Pulse Rate 84 06/23/16 05:43 Respiratory Rate 20 06/23/16 05:43 Blood Pressure 110/53 06/23/16 05:43 O2 Sat by Pulse Oximetry (%) 94 L 06/22/16 21:00 Constitutional: Yes: Well Nourished, No Distress Neck: Yes: WNL, Supple Cardiovascular: Yes: S1, S2 Respiratory: Yes: WNL. No: Rales, Rhonchi Gastrointestinal: Yes: WNL, Normal Bowel Sounds, Soft. No: Tenderness Edema: No Labs: CBC, BMP 06/22/16 05:35 06/23/16 05:35 Assessment/Plan Microbiology 06/21/16 09:30 Urine - Urine Clean Catch Urine Culture - Preliminary Group D Strep Or Entero Coccus Laboratory Tests 06/14/16 06/21/16 06/22/16 12:50 09:25 05:35 WBC 5.0 Hgb 8.7 L Hct 26.4 L Plt Count 211 AST ALT Alkaline Phosphatase Ur Leukocyte Esterase 3+ H 2+ H Urine RBC 5 1 Urine WBC 1177 36 06/23/16 05:35 WBC Hgb Hct Plt Count AST 32 D ALT 70 Alkaline Phosphatase 128 H Ur Leukocyte Esterase Urine RBC Urine WBC Assessment Enterococcal UTI PCN allergic Heart failure Plan Vanco level now IF less then 10 re dose 1 gr Switch po tomorrow Fabien FELIZ
[2016-06-23] MEDS: ALBUTEROL SO4 0.083% IH SOL 2.5 MG/3 ML VIAL.NEB. NEB SCH ×4 (11:00→23:18)
[2016-06-23] MEDS ORDERED: METOLAZONE 2.5 MG TABLET (FP) PO ONE (13:30)
--- NOTE | 2016-06-23 14:03 | CONS ---
DATE OF CONSULTATION: DATE OF DICTATION: 06/23/2016 This is a 76-year-old female hospitalized since June 14, who I am asked to see now with new onset of fever. She was originally admitted for acute heart failure exacerbation with elevated liver enzymes thought secondary to ischemic hepatitis. She apparently signed out of the hospital to be re-admitted for worsening abdominal distention and lower extremity edema. She has been afebrile throughout most of her hospitalization until yesterday when temperature darrius to 101.2. She noted feeling chilly but denied any devan rigors, and denied any abdominal pain or urinary complaints. She, however, does say she has had urinary infections treated in the distant past. She was given initially a dose of Keflex. Blood cultures were obtained and she is now growing group D streptococcus avium from a urine culture, greater than 100,000 colony count, sensitive to ampicillin. The patient is PENICILLIN allergic. Past medical history includes status post ICD, breast cancer with mastectomy, status post chemotherapy, uterine cancer, appendectomy, hysterectomy, bilateral knee replacement. MEDICATIONS AT HOME: Aspirin, Ambien, K-Dur, Demadex. Allergies to PENICILLIN many years ago. SOCIAL HISTORY: Former smoker with history of EtOH abuse in the past. Family history reviewed, noncontributory. REVIEW OF SYSTEMS: Respiratory: Mild shortness of breath and dry cough. No hemoptysis. Cardiac: No chest pain, palpitations, syncope. Gastrointestinal: No abdominal pain, nausea, vomiting, diarrhea. Genitourinary: Positive dysuria. Denies hematuria or urinary frequency. PHYSICAL EXAMINATION: General: An elderly alert woman in no acute distress. Vital Signs: Temperature was 97.8, pulse 84, blood pressure 110/53, respirations 20. Neck: Supple. Lungs: Scattered rhonchi, few rales. Heart: S1, S2. Regular rhythm without murmur. Abdomen: Soft, nontender, without hepatosplenomegaly. Extremities: 1+ lower extremity edema. The white count is 5.0, hemoglobin 8.7, platelets of 211. BUN 28, creatinine 1.0, AST 32, alkaline phosphatase 128. Urinalysis: 2+ leukocyte esterase, 36 white cells, 1 red cell. Chest x-ray dated June 22 shows a large heart with a pacemaker but no acute pathology. ASSESSMENT: A 76-year-old female admitted for exacerbation of heart failure. Course complicated by onset of fever yesterday to 101 with urinalysis and urine culture findings consistent with urinary tract infection. As discussed with her primary care provider, she has been treated with 1 g of vancomycin. Would check the level today. She cannot be given PENICILLIN due to her alleged history of PENICILLIN allergy. She can be switched to an oral medication tomorrow, probably a quinolone, to complete 5 days of oral treatment. OCTAVIO BUSTAMANTE M.D. ADEN/[id number]
[2016-06-23] MEDS: ACETAMINOPHEN 325 MG TABLET (FP) PO PRN (14:49)
--- NOTE | 2016-06-23 14:59 | PN ---
Physical Exam: SUBJECTIVE: Patient seen and examined. She is coughing a lot, no productive. She says she been taking care of her self for several years, her daughter is wrong OBJECTIVE: Vital Signs Period Temp Pulse Resp BP Sys/Drake Pulse Ox Last 24 Hr 97.8 F-101.8 F 84-102 20-20 99-130/43-64 94-94 PE Neuro: alert, awake, cn 2-12intact Heent: ++ jvd Pulm: CTAB, +cough CV: s1 s2 irregular rhythm Abd: s nt nd + bs Ext: +1 le edema, warm Laboratory Results - last 24 hr 06/23/16 06/23/16 05:35 10:10 Sodium 132 L Potassium 4.2 D Chloride 91 L Carbon Dioxide 29 Anion Gap 12 BUN 28 H D Creatinine 1.0 Creat Clearance w eGFR 53.62 Random Glucose 89 Calcium 7.8 L Magnesium 1.6 L Total Bilirubin 0.5 AST 32 D ALT 70 Alkaline Phosphatase 128 H Total Protein 5.2 L Albumin 2.7 L Random Vancomycin 7.978 Active Medications Generic Name Dose Route Start Last Admin Trade Name Freq PRN Reason Stop Dose Admin Acetaminophen 325 mg 06/22/16 09:40 06/23/16 14:49 Tylenol - PO 325 mg Q6H PRN Administration FEVER OR PAIN Al Hydroxide/Mg Hydroxide 30 ml 06/17/16 19:28 Mylanta Oral Suspension - PO Q6H PRN DYSPEPSIA Albuterol Sulfate 1 amp 06/23/16 10:14 06/23/16 11:57 Ventolin 0.083% Nebulizer Soln - NEB 06/24/16 10:13 1 amp QIDR NIKOLAS Administration Aspirin 81 mg 06/15/16 10:00 06/23/16 09:06 Ecotrin - PO 81 mg DAILY NIKOLAS Administration Benzocaine/Menthol 1 each 06/21/16 16:28 06/22/16 09:38 Cepacol Lozenge - MM 1 each PRN PRN Administration SORE THROAT Carvedilol 12.5 mg 06/15/16 10:00 06/23/16 09:06 Coreg - PO 12.5 mg BID NIKOLAS Administration Docusate Sodium 100 mg 06/15/16 07:36 Colace - PO DAILY PRN CONSTIPATION Enoxaparin Sodium 40 mg 06/18/16 10:00 06/23/16 09:06 Lovenox - SQ 40 mg DAILY NIKOLAS Administration Furosemide 80 mg 06/23/16 14:00 06/23/16 14:11 Lasix Injection - IVPUSH 80 mg TID NIKOLAS Administration Milrinone Lactate/Dextrose 100 mls @ 3.683 mls/hr 06/19/16 16:00 06/22/16 21:36 Milrinone 20mg/100ml Ivpb - IVPB 3.683 mls/hr TITR NIKOLAS Administration Protocol 0.25 MCG/KG/MIN Magnesium Oxide 400 mg 06/15/16 10:00 06/23/16 09:06 Mag-Ox - PO 400 mg DAILY NIKOLAS Administration Midodrine 5 mg 06/15/16 10:00 06/23/16 14:10 Proamatine - PO 5 mg TID-MID NIKOLAS Administration Potassium Chloride 40 meq 06/22/16 10:00 06/23/16 09:06 K-Dur - PO 40 meq BID NIKOLAS Administration Zolpidem Tartrate 5 mg 06/19/16 16:16 06/22/16 21:37 Ambien - PO 5 mg HS PRN Administration INSOMNIA Microbiology 06/21/16 09:30 Urine Culture - Final Urine - Urine Clean Catch Enterococcus Avium 06/22/16 12:00 Blood Culture - Preliminary Blood - Peripheral Venous NO GROWTH OBTAINED AFTER 24 HOURS, INCUBATION TO CONTINUE FOR 4 DAYS. 06/22/16 12:28 Blood Culture - Preliminary Blood - Peripheral Venous NO GROWTH OBTAINED AFTER 24 HOURS, INCUBATION TO CONTINUE FOR 4 DAYS. Imaging: - Echo 05/2016: Mod LV dilation, severely impaired lv fn (global), EF 20% - biplane EF 24%. nl rv. severe LAE. mild-mod mr/tr. rvsp at least 38 mmHg. IVC with respirophasic variation. - LHC 2001 ([facility]): normal cords mild, diffuse LV hypo (EF 54%); mild-mod LVH - MIBI 2010 (per): dil LV with mod global HK (40%); fixed infer/inferoapical defect; no ischemia Assessment: 76 year old female with pmhx of HTN, NICM, systolic HF s/p PPM/AICD , breast cancer s/p mastectomy, uterine cancer s/p chemo, and hyponatremia. Admitted for systolic HF exacerbation, now on milrinone and aggressive diuresis. Plan: 1. UTI d/t Enterococcus Avium - Fevers this afternoon - Vanc level <10 - Give x1 dose vanco 1gm - Discussed above with ID 2. Acute on chronic systolic heart failure - Weight unchanged today - Increase lasix 80mg TID - Give matolazone 2.5mg x1 - Continue milrinone gtt - KDur 40mEq BID - Discussed above with cardiology - PO torsemide when wt 100-101 3. Hypertension - Continue Coreg 12.5 mg BID 4. Orthostatic hypotension - Continue midodrine 5. Transaminitis - Improving, d/t hepatic congestion 6. Hypomagnesemia - Will give 2gm mag x1 7. Hypervolemic hyponatremia - Na improving 8. Social: - Will need home services for PT, OT (patient has difficulty opening medication bottles), and VNS for weights and medication compliance Visit type - Emergency Visit Emergency Visit: Yes ED Registration Date: 06/14/16 Care time: The patient presented to the Emergency Department on the above date and was hospitalized for further evaluation of their emergent condition. - New Patient This patient is new to me today: No - Critical Care Critical Care patient: No
[2016-06-23] MEDS ORDERED: VANCOMYCIN 1 GRAM (PRE-DOCKED) 250 ML IVPB ONE (15:30)
[2016-06-23] MEDS: guaiFENesin 200 MG/10 ML 10 ML UNIT-DOSE CUPS PO PRN ×2 (15:47→23:04)
[2016-06-23] MEDS: ZOLPIDEM TARTRATE 5 MG TABLET PO PRN (22:53)
[2016-06-24] MEDS ORDERED: ZOLPIDEM TARTRATE 5 MG TABLET PO ONE (02:04)
[2016-06-24] MEDS: MILRINONE 20MG/100ML IVPB - 100 ML IVPB SCH ×2 (03:19→07:14)
[2016-06-24] MEDS: ALBUTEROL SO4 0.083% IH SOL 2.5 MG/3 ML VIAL.NEB. NEB SCH (06:42)
[2016-06-24] MEDS: FUROSEMIDE 40 MG/4 ML INJECTABLE VIAL IVPUSH SCH (06:52)
[2016-06-24 07:41] LABS: MCH 28.3 pg (25.7-33.7); MEAN CELL VOLUME 85.8 fl (80-96); MEAN PLT VOLUME 7.9 fl (7.5-11.1); PLATELET COUNT 197 K/MM3 (134-434); RDW 15.2 % (11.6-15.6); WHITE BLOOD COUNT 3.7 K/mm3 (4.0-10.0)
[2016-06-24 08:08] LABS: ALBUMIN 2.7 g/dl (3.4-5.0); ALK PHOS 127 U/L (45-117); ANION GAP 14 (8-16); BILIRUBIN,TOTAL 0.4 mg/dL (0.2-1.0); CALCIUM 7.8 mg/dL (8.5-10.1); CO2 33 mmol/L (21-32); CREATININE 0.9 mg/dL (0.55-1.02); GLUCOSE,RANDOM 86 mg/dL (74-106); MAGNESIUM 1.9 mg/dL (1.8-2.4); PHOSPHOROUS 3.2 mg/dL (2.5-4.9); SGOT/AST 37 U/L (15-37); SGPT/ALT 67 U/L (12-78); TOT PROT 5.4 g/dl (6.4-8.2)
--- NOTE | 2016-06-24 08:55 | PN ---
Progress Note, Physician Chief Complaint: CHF History of Present Illness: walked to [facility]--no sob; denies orthop/PND no palpit, cp no cigs - Current Medication List Current Medications: Active Medications Acetaminophen (Tylenol -) 325 mg PO Q6H PRN PRN Reason: FEVER OR PAIN Last Admin: 06/23/16 14:49 Dose: 325 mg Al Hydroxide/Mg Hydroxide (Mylanta Oral Suspension -) 30 ml PO Q6H PRN PRN Reason: DYSPEPSIA Albuterol Sulfate (Ventolin 0.083% Nebulizer Soln -) 1 amp NEB QIDR [facility] Stop: 06/24/16 10:13 Last Admin: 06/24/16 06:42 Dose: 1 amp Aspirin (Ecotrin -) 81 mg PO DAILY [facility] Last Admin: 06/23/16 09:06 Dose: 81 mg Benzocaine/Menthol (Cepacol Lozenge -) 1 each MM PRN PRN PRN Reason: SORE THROAT Last Admin: 06/22/16 09:38 Dose: 1 each Carvedilol (Coreg -) 12.5 mg PO BID [facility] Last Admin: 06/23/16 22:53 Dose: 12.5 mg Docusate Sodium (Colace -) 100 mg PO DAILY PRN PRN Reason: CONSTIPATION Enoxaparin Sodium (Lovenox -) 40 mg SQ DAILY [facility] Last Admin: 06/23/16 09:06 Dose: 40 mg Furosemide (Lasix Injection -) 80 mg IVPUSH TID [facility] Last Admin: 06/24/16 06:52 Dose: 80 mg Guaifenesin (Robitussin -) 10 ml PO Q6H PRN PRN Reason: COUGH Last Admin: 06/23/16 23:04 Dose: 10 ml Milrinone Lactate/Dextrose (Milrinone 20mg/100ml Ivpb -) 100 mls @ 3.683 mls/ hr IVPB TITR NIKOLAS; 0.25 MCG/KG/MIN PRN Reason: Protocol Last Admin: 06/24/16 07:14 Dose: 3.6 mls/hr Magnesium Oxide (Mag-Ox -) 400 mg PO DAILY [facility] Last Admin: 06/23/16 09:06 Dose: 400 mg Midodrine (Proamatine -) 5 mg PO TID-MID [facility] Last Admin: 06/23/16 17:34 Dose: 5 mg Potassium Chloride (K-Dur -) 40 meq PO BID [facility] Last Admin: 06/23/16 22:53 Dose: 40 meq Zolpidem Tartrate (Ambien -) 5 mg PO HS PRN PRN Reason: INSOMNIA Last Admin: 06/23/16 22:53 Dose: 5 mg - Objective Vital Signs: Vital Signs Temperature 98.8 F 06/24/16 06:00 Pulse Rate 78 06/24/16 06:00 Respiratory Rate 20 06/24/16 06:00 Blood Pressure 106/40 06/24/16 06:00 O2 Sat by Pulse Oximetry (%) 94 L 06/23/16 21:00 Constitutional: Yes: No Distress, Calm Eyes: No: Sclera Icterus HENT: No: Nasal Congestion Cardiovascular: Yes: Regular Rate and Rhythm, S1, S2, Other (PMI non diplaced). No: JVD, Gallop, Murmur Respiratory: Yes: CTA Bilaterally, Rhonchi. No: Accessory Muscle Use, Rales, Wheezes Gastrointestinal: Yes: Normal Bowel Sounds, Soft. No: Tenderness Musculoskeletal: Yes: Other (No kyphosis) Extremities: No: Cold Edema: No Integumentary: No: Jaundice Neurological: Yes: Alert, Oriented (x3) Psychiatric: No: Agitated Labs: CBC, BMP 06/24/16 05:32 06/24/16 05:32 - ....Imaging EKG: Other (tele: NSR, runs PAT; NSVT x 1) Assessment/Plan Echo 05/2016: Mod LV dilation, severely impaired lv fn (global), EF 20% - biplane EF 24%. nl rv. severe LAE. mild-mod mr/tr. rvsp at least 38 mmHg. IVC with respirophasic variation. Echo 01/2016 [facility]: Mod LV dil. EF 25-30%, NL RV. mild-mod MR. Mod TR. mild phtn. Echo 12/14 ([facility]): mod LVE; severe decr EF global; dd1; nl RV; normal PV syst flow; mild L/JAQUELINE; mild-mod MR/TR; mild pHTN (48); small peric eff [facility] normal cor.s; mild, diffuse LV hypo (EF 54%); mild-mod LVH; (done for evaluation of cardimyopathy or pericardial dz) MIBI 2010 (per): dil LV with mod global HK (40%); fixed infer/inferoapical defect; no isch a/p: 76 yo with h/o nonisch CMP, [place]--s/p ICD, SOUMYA, breast Ca--mastectomy, s/p Carloz, uterine CA s/p chemo presents with hyponatremia. NICM, - acute exacerbation in setting of leaving AMA last week and subsequent non- adherence to medications - Concern for superimposed RV failure on last admit. - Hepatic congestion continues to improve (from LFT's on last admit). - recent home dry weight 101-103. - treating with lasix 80 mg IV BID. - 06/17: wt down 109 to 108, now stalled at 108 again today; bun/creat stable, Na trending down--she remains vol overloaded clinically with marked incr JVP pressure --> incr lasix 80 iv bid to 80 iv tid today--reassess labs and wt in am - 06/18: still volume up. con't lasix TID dosing for now. aggressive potassium repletion. - 06/19: cr up and na down today but still with JVD and wt not back to baseline. Ideally would try iv lasix with milrinone to see if more vol can come off but pt adamant about going home today and thus would have to be AMA again. If this is case would give torsemide 50 mg qd. -06/20: pt decided not to leave AMA so now started on milrinone with iv lasix. Cont same. -06/21: cr, Na, lfts improved and wt down slightly today. cont same milrinone and lasix iv. Monitor daily wts, chem -06/22: wt down 109-->104 (few lbs away from dry wt now) -06/23: wt unchanged (105), bun/creat, Na stable; JVD remains very elevated; -cont milrinone today, incr lasix to 80 iv tid today and will give one dose metolazone 2.5 with it; -06/24: s/p lasix 80 iv TID with one dose metolazone yesterday; wt down 105 to 100; JVD fully resolved; Na and bun/creat stable -K 3.0 (metolazone effect), getting 40 meq po bid--given 60 meq po x 1 now, 40meq po x 1 later today prior to leaving hospital (can't tolerate IV runs) -will d/c milrinone and send home on torsemide 50 qd plus KCL 40meq daily, with weekly labs and office f/u 1 week - cont carvedilol 12.5 bid, midodrine 5 TID to prevent recurrent orthostatic hypotension/presyncope/syncope - low bp (intolerant of even low dose lisin 2.5mg with presyncope/syncope) will not tolerate Entresto. -QRS 120msec, low likelihood for clinical response to [employer] upgrade per my d/w EP- -will offer to pt if cannot control her chf with appropriate meds (i.e. once she is complying) -do not recommend pt go back home without services as she has repeatedly demonstrated inability to correctly comply with meds and home wt monitoring [place] s/p ICD - Recent office check normal. Con't routine outpatient monitoring. - tele stable here--occ runs of NSVT as per her usual - aggressive K repletion, as ordered - Mag stable SOUMYA - patient declines treatment
[2016-06-24] MEDS ORDERED: KCL 10 MEQ IVPB 100 ML IVPB SCH (09:00)
[2016-06-24] MEDS: MAGNESIUM OXIDE 400 MG TABLET (FP) PO SCH (09:06)
[2016-06-24] MEDS: CARVEDILOL 12.5 MG TABLET (FP) PO SCH (09:07)
[2016-06-24] MEDS: ENOXAPARIN NA (PORCINE) 40 MG/0.4 ML DISP.SYRIN SQ SCH (09:07)
[2016-06-24] MEDS: ASPIRIN COATED 81 MG TABLET.EC PO SCH (09:07)
[2016-06-24] MEDS: MIDODRINE HCL 5 MG TABLET PO SCH ×2 (09:07→13:21)
[2016-06-24] MEDS ORDERED: POTASSIUM CHLORIDE TABS 20 MEQ TABLET.ER (FP) PO ONE ×2 (09:15→12:00)
--- NOTE | 2016-06-24 13:08 | PN ---
Progress Note, Physician Chief Complaint: ID Asymptomatic 2 doses Vancomycin given UTI Afebrile T max 101.8 ! - Current Medication List Current Medications: Active Medications Acetaminophen (Tylenol -) 325 mg PO Q6H PRN PRN Reason: FEVER OR PAIN Last Admin: 06/23/16 14:49 Dose: 325 mg Al Hydroxide/Mg Hydroxide (Mylanta Oral Suspension -) 30 ml PO Q6H PRN PRN Reason: DYSPEPSIA Aspirin (Ecotrin -) 81 mg PO DAILY [facility] Last Admin: 06/24/16 09:07 Dose: 81 mg Benzocaine/Menthol (Cepacol Lozenge -) 1 each MM PRN PRN PRN Reason: SORE THROAT Last Admin: 06/22/16 09:38 Dose: 1 each Carvedilol (Coreg -) 12.5 mg PO BID [facility] Last Admin: 06/24/16 09:07 Dose: 12.5 mg Docusate Sodium (Colace -) 100 mg PO DAILY PRN PRN Reason: CONSTIPATION Enoxaparin Sodium (Lovenox -) 40 mg SQ DAILY [facility] Last Admin: 06/24/16 09:07 Dose: 40 mg Guaifenesin (Robitussin -) 10 ml PO Q6H PRN PRN Reason: COUGH Last Admin: 06/23/16 23:04 Dose: 10 ml Magnesium Oxide (Mag-Ox -) 400 mg PO DAILY [facility] Last Admin: 06/24/16 09:06 Dose: 400 mg Midodrine (Proamatine -) 5 mg PO TID-MID [facility] Last Admin: 06/24/16 09:07 Dose: 5 mg Torsemide (Demadex -) 50 mg PO DAILY [facility] Zolpidem Tartrate (Ambien -) 5 mg PO HS PRN PRN Reason: INSOMNIA Last Admin: 06/23/16 22:53 Dose: 5 mg - Objective Vital Signs: Vital Signs Temperature 98 F 06/24/16 10:00 Pulse Rate 74 06/24/16 10:00 Respiratory Rate 18 06/24/16 10:00 Blood Pressure 100/70 06/24/16 10:00 O2 Sat by Pulse Oximetry (%) 97 06/24/16 09:00 Constitutional: Yes: Well Nourished, No Distress HENT: Yes: WNL, Atraumatic Neck: Yes: WNL, Supple Cardiovascular: Yes: Regular Rate and Rhythm, S1, S2 Respiratory: Yes: WNL, Regular, CTA Bilaterally Edema: Yes Labs: CBC, BMP 06/24/16 05:32 06/24/16 05:32 Assessment/Plan Microbiology 06/21/16 09:30 Urine - Urine Clean Catch Urine Culture - Final Enterococcus Avium 06/22/16 12:28 Blood - Peripheral Venous Blood Culture - Preliminary NO GROWTH OBTAINED AFTER 48 HOURS, INCUBATION TO CONTINUE FOR 3 DAYS. 06/22/16 12:00 Blood - Peripheral Venous Blood Culture - Preliminary NO GROWTH OBTAINED AFTER 48 HOURS, INCUBATION TO CONTINUE FOR 3 DAYS. Laboratory Tests 06/23/16 06/24/16 06/24/16 10:10 05:32 05:32 WBC 3.7 L Hgb 8.9 L Plt Count 197 BUN 33 H Creatinine 0.9 Random Vancomycin 7.978 Assessment Fever likely urinary infection E Avium sensitive to quinolone Plan Levoflox 250mg orally 5 days Fabien FELIZ
[2016-06-24] MEDS ORDERED: LEVOFLOXACIN 250 MG TABLET (FP) PO SCH (13:30)
[2016-06-24 13:56] LABS: HYPOCHROMIA 1+; PLATELET ESTIMATE ADEQUATE (NORMAL)
[2016-06-24 13:57] LABS: OVALOCYTES OCC; POLYCHROMASIA OCC
--- NOTE | 2016-06-24 15:43 | DS ---
Physical Exam: SUBJECTIVE: Patient seen and examined. She says she does feel a difference from yesterday to today, her cough is better. OBJECTIVE: Vital Signs Period Temp Pulse Resp BP Sys/Drake Pulse Ox Last 24 Hr 98 F-99.4 F 74-78 18-20 100-131/40-88 94-97 PE Neuro: alert, awake, cn 2-12intact HEENT: no JVD Pulm: CTAB, CV: s1 s2 irregular rhythm Abd: s nt nd + bs Ext: no le edema- resolved, warm Laboratory Results - last 24 hr 06/24/16 06/24/16 05:32 05:32 WBC 3.7 L RBC 3.13 L Hgb 8.9 L Hct 26.8 L MCV 85.8 MCHC 33.0 RDW 15.2 Plt Count 197 MPV 7.9 Neutrophils % 66.0 Lymphocytes % 9.0 D Monocytes % 23.0 H Eosinophils % 2.0 Basophils % 0.0 Band Neutrophils 0.0 Differential Comment Manual diff done Platelet Estimate Adequate Platelet Comment Few large plts Polychromasia Occ Hypochromic-Microcytic 1+ Ovalocytes Occ Sodium 131 L Potassium 3.0 L D Chloride 84 L Carbon Dioxide 33 H Anion Gap 14 BUN 33 H Creatinine 0.9 Creat Clearance w eGFR > 60 Random Glucose 86 Calcium 7.8 L Phosphorus 3.2 D Magnesium 1.9 Total Bilirubin 0.4 AST 37 ALT 67 Alkaline Phosphatase 127 H Total Protein 5.4 L Albumin 2.7 L HOSPITAL COURSE: Date of Admission:06/14/16 Date of Discharge: 06/24/16 Minutes to complete discharge: 35 Discharge Summary Reason For Visit: CONGESTIVE HEART FAILURE Current Active Problems CHF (congestive heart failure) (Acute) CHF (congestive heart failure), NYHA class III (Acute) Hospital Course: Initial Hospital Course: Briefly, this 76 year old female, with a past medical history of systolic congestive heart failure, nonischemic cardiomyopathy, AICD, hypertension, SOUMYA ( no bipap), bilateral breast cancer, endometrial cancer, CAD, recently AMA from [place]. Was hospitalized at that time for acute HF exacerbation with hyponatremia and shock liver. Was diuresed at the time with lasix 80 mg iv bid. Sent home on Torsemide 50mg daily Since discharge has been confused about her medication and is not sure what she was supposed to be taking. Subsequently developed worsening abdominal distension and LE edema. Imaging: - Echo 05/2016: Mod LV dilation, severely impaired lv fn (global), EF 20% - biplane EF 24%. nl rv. severe LAE. mild-mod mr/tr. rvsp at least 38 mmHg. IVC with respirophasic variation. - LHC 2001 ([facility]): normal cords mild, diffuse LV hypo (EF 54%); mild-mod LVH - MIBI 2010 (per): dil LV with mod global HK (40%); fixed infer/inferoapical defect; no ischemia Subsequent Hospital Course/Progress Note/Discharge Summary: Plan: 1. Acute on chronic systolic heart failure - Aggressive IV Lasix 80mg TID and BID while inpt - Milrinone gtt 06/20-06/24 - Matolazone 2.5mg x1 - KDur 40mEq BID - Wt down to 100-105 - Cardiology follow up this Monday 06/26 2. UTI d/t Enterococcus Avium - Vanco x2 - Home with levaquin 250mg total 5 days 3. Hypertension - Continue Coreg 12.5 mg BID 4. Orthostatic hypotension - Continue midodrine 5. Transaminitis - Improving, d/t hepatic congestion 6. Hypomagnesemia - Repleted 7. Hypervolemic hyponatremia - Na improving - follow up in office for labs 06/26 8. Social/Dispo: - Home with [facility] and cardiology follow up, pt verbalizes understanding - Medications sent to pharmacy to [facility], she understands - Care was discussed with daughter by social work and CM teams Condition: Stable - Instructions Diet, Activity, Other Instructions: Please return to the ED for any new, persistent, or worsening symptoms. Followup with your PCP in 1 [address] Follow up [address] Dr. Pantoja this Friday, he is expecting you. He will need to check your potassium levels Take medications as listed on your home discharge medication list Complete last 4 days of antibiotics for your Urinary Tract Infection Visiting Nurse Services have been arranged for you Referrals: yTler Pantoja MD [Primary Care Provider] - Bill Rodriguez MD [Staff Physician] - Disposition: VNS/HOME HEALTH CARE - Home Medications Comprehensive Discharge Medication List: Ambulatory Orders Cholecalciferol (Vitamin D3) [Vitamin D3] 1,000 unit PO 2 TABS DAILY tablet Docusate Sodium [Stool Softener] 100 mg PO DAILY PRN tablet 07/14/13 Multivit-Min/Iron/Folic/Lutein [Centrum Silver Women Tablet] 1 each PO DAILY 09/13 Carvedilol [Coreg -] 12.5 mg PO BID #60 tablet 02/06/16 Aspirin [Aspirin EC] 81 mg PO DAILY 05/31/16 Krill/[place]-3/Dha/Epa/Lipids [[place]-3 Krill Oil 500 mg Sfgl] 1 each PO DAILY 06/14 Ubidecarenone [Coq-10] 100 mg PO DAILY 05/31/16 Zolpidem Tartrate [Ambien] 10 mg PO HS PRN 06/01/16 Magnesium Oxide [Mag-Ox -] 400 mg PO DAILY #30 tablet 06/10/16 Potassium Chloride [K-Dur -] 40 meq PO DAILY #30 tablet.er 06/10/16 Midodrine HCl 5 mg PO TID tablet 06/14/16 Levofloxacin [Levaquin -] 250 mg PO DAILY@0600 #4 tablet 06/24/16 Torsemide [Demadex -] 50 mg PO DAILY #30 tablet 06/24/16 This patient is new to me today: No Emergency Visit: Yes ED Registration Date: 06/14/16 Care time: The patient presented to the Emergency Department on the above date and was hospitalized for further evaluation of their emergent condition. Critical Care patient: No - Discharge Referral Referred to [facility] Med P.C.: No Physician Referral: Bill Rodriguez MD (Int Med)
[2016-06-24 16:09] VITALS: BP 114/78; PULSE 76; TEMP 97.6
[2016-06-25] MEDS ORDERED: TORSEMIDE 20 MG TABLET (FP) PO SCH ×2 (10:00)
== END 2016-06-24 19:57 | disposition home health service (06) | DRG 292 ==
LOC: JER 12:23 → JERBED 15:18 → UNDOADMIN 15:40 → JERBED 15:40 → J6S 18:26 → J4W 20:54
PROVIDERS: ADMIT Internal Medicine; ATTEND Nurse Practitioner Acute Care
DX: I11.0 Hypertensive heart disease with heart failure (principal); N39.0 Urinary tract infection, site not specified; E87.1 Hypo-osmolality and hyponatremia; I47.1 Supraventricular tachycardia; I47.2 Ventricular tachycardia; I50.23 Acute on chronic systolic (congestive) heart failure; B95.2 Enterococcus as the cause of diseases classified elsewhere; I95.1 Orthostatic hypotension; R74.0 Nonspecific elevation of levels of transaminase and lactic acid dehydrogenase [LDH]; E83.42 Hypomagnesemia; G47.33 Obstructive sleep apnea (adult) (pediatric); Z85.3 Personal history of malignant neoplasm of breast; I42.9 Cardiomyopathy, unspecified; E87.6 Hypokalemia
CPT/HCPCS: 36415; 71010-TC; 80048; 80053; 81003; 81015; 83735; 83880; 84100; 84132; 85025; 87040; 87086; 87186; 93005; 93010; 94640; 97116-GP; 97161-GP; 99284-25; G0480